=== PATIENT | female | born 1985 | race Caucasian/White ===

== ENCOUNTER 2021-04-10 11:56 | Inpatient (IN) ==
--- NOTE | 2021-04-10 12:13 | Emergency Department Note ---
HPI General Chief complaint: Stroke Symptoms Stated complaint: Increase Weakness and not talking Time Seen by Provider: 04/10/21 12:01 Source: patient Mode of arrival: wheelchair Limitations: no limitations History of Present Illness HPI Narrative: Patient is a 35-year-old lady who arrives emergency department by private vehicle accompanied by her complaining of altered mental status. History is provided by the patient's is quite limited by her current mental status. The patient went to bed last night in her usual state of health and awoke this morning and her noticed she was quite confused. She was unable to carry a conversation with him although she was able to follow commands. He also noted that she had a very unsteady gait which is quite unusual for her. He was concerned about her symptoms and brought her to the emergency department for further evaluation. The patient did have a prior stroke resulting in left upper extremity weakness but had recovered her neurologic function. Related Data Home Medications Medication Instructions Recorded Confirmed albuterol sulfate 90 mcg/actuation 1 puff INH Q4HP PRN 08/25/14 10/20/14 aerosol inhaler (Ventolin HFA) insulin glargine 100 unit/mL 70 unit SQ ONCE 08/25/14 10/20/14 subcutaneous solution (Lantus U-100 Insulin) montelukast 10 mg tablet 10 mg PO DAILY 08/25/14 10/20/14 (Singulair) nateglinide 60 mg tablet (Starlix) 60 mg PO TID 08/25/14 10/20/14 ondansetron 4 mg disintegrating 4 mg PO PRN PRN 08/25/14 10/20/14 tablet sitagliptin 100 mg tablet (Januvia) 100 mg PO DAILY 08/25/14 10/20/14 bupropion HCl 100 mg tablet 150 mg PO ONCE 09/26/15 05/26/19 exenatide microspheres 2 mg/0.65 2 mg SQ DAILY 05/26/19 05/26/19 mL subcutaneous pen injector losartan 100 mg tablet 100 mg PO DAILY 05/26/19 05/26/19 Previous Rx's Medication Instructions Recorded prednisone 10 mg tablet 10 mg PO DAILY #40 tab 04/02/15 azithromycin 250 mg tablet 250 mg PO DAILY #6 tab 03/17/17 fluconazole 150 mg tablet 150 mg PO ONCE #2 tab 03/17/17 methocarbamol 750 mg tablet 750 mg PO TID PRN #20 tab 05/26/19 albuterol sulfate 90 mcg/actuation 2 puff INHALATION Q4H PRN #6.7 g 12/20/20 aerosol inhaler prednisone 20 mg tablet 60 mg PO QDAY #15 tab 12/20/20 fluconazole 150 mg tablet 150 mg PO Q3D #2 tab 04/03/21 Allergies Allergy/AdvReac Type Severity Reaction Status Date / Time guaifenesin [From QUIBRON] Allergy Unknown VOMIT Verified 04/10/21 12:00 lisinopril [LISINOPRIL] Allergy Unknown IRRATABLE Verified 04/10/21 12:00 metformin [METFORMIN] Allergy Unknown NAUSEA Verified 04/10/21 12:00 quinapril [QUINAPRIL] Allergy Unknown DIZZY Verified 04/10/21 12:00 VOMIT, theophylline [From QUIBRON] Allergy Unknown VOMIT Verified 04/10/21 12:00 Review of Systems ROS ROS Narrative: Narrative: Limitations: ROS unobtainable due to patients medical condition [facility] Narrative Patient History Narrative: Narrative: Medical/Surgical/Family History All Active Problems (Updated 04/10/21 @ 14:27 by Andre Sunshine DO) Diabetic ketoacidosis (Acute) Upper respiratory infection (Acute) Atypical pneumonia (Acute) Moyamoya (Acute) Asthma (Acute) Diabetes (Acute) Asthma exacerbation (Acute) Acute bronchitis (Acute) Left shoulder pain (Acute) Weakness of left upper extremity (Acute) Contracture of muscle, left upper arm (Acute) Medical History (Updated 04/10/21 @ 14:27 by Andre Sunshine DO) Asthma exacerbation delivery delivered CVA (cerebral vascular accident) Surgical History H/O tubal ligation Social History Smoking Status: Never smoker Alcohol Intake Frequency: does not drink Substance Use: does not use Exam Narrative Narrative: I reviewed the vital signs. Gen -patient is awake and alert and in no acute distress. Patient appears slightly disheveled. She smells strongly of urine. HEENT -head is atraumatic. There is no conjunctival pallor or scleral icterus. Mucous membranes are moist. CV -S1-S2 regular rate and rhythm. Resp -breathing is nonlabored. Lungs are clear to auscultation bilaterally. There is no cyanosis. Derm -skin is warm and dry. MSK -present extremities are atraumatic. Psych -patient has appropriate affect. Neuro -patient does not produce any intelligible speech. Patient has a very ataxic gait. Muscle strength is 5 out of 5 in all 4 extremities. There is no facial muscular asymmetry. Tongue protrudes in the midline and the palate elevates symmetrically. Patient has difficulty processing more complex commands. Within the limitations of this examination the patient's NIH stroke scale is 6. General Limitations: no limitations Course Vital Signs Vital signs: Vital Signs Temperature 97.7 F 04/10/21 11:57 Pulse Rate 135 H 04/10/21 11:57 Respiratory Rate 22 04/10/21 11:57 Blood Pressure 148/129 04/10/21 11:57 Pulse Oximetry (%) 98 04/10/21 11:57 Temperature 97.7 F 04/10/21 11:57 Pulse Rate 132 H 04/10/21 13:05 Respiratory Rate 21 04/10/21 13:46 Blood Pressure 173/112 04/10/21 13:46 Pulse Oximetry (%) 100 04/10/21 13:05 [facility] MDM Narrative Medical decision making narrative: Patient presents with acute altered mental status. CT reveals some subacute or chronic infarcts but no acute intracranial hemorrhage. Labs are remarkable for a metabolic acidosis elevated anion gap and ketones. She is also hyperglycemic and her CBC appears somewhat hemoconcentrated. On reassessment after receiving IV fluids, the patient is able to produce some fluent speech although she still provides very brief answers to questions. She does note that she has missed doses of her medications recently but cannot quantify how many or which m edications she has missed. I discussed the test results with the patient and her . I considered the possibility of ischemic stroke but given the improvement with IV fluids and the diabetic ketoacidosis that is present I think her symptoms are likely due to metabolic encephalopathy. She is agreeable with the plan for admission. Even if this were an acute ischemic stroke the patient is not a candidate for IV thrombolytics or endovascular therapy due to the timing of the onset of her symptoms. I discussed the patient's history examination and diagnostic findings with Dr. Flores, who agrees with the plan of care and accepts admission. Critical care time I provided 35 minutes of critical care time. This was in addition to any separately billable procedures. The patient was given IV fluids to treat her dehydration and the causative diabetic ketoacidosis. She was given IV insulin to treat her diabetic ketoacidosis. She was rapidly assessed for mental status changes concerning for possible ischemic or hemorrhagic stroke. The patient was closely monitored for response to treatment and stability of vital signs throughout their emergency department stay. Lab Data Lab results reviewed: Yes I reviewed the patient's lab results. Result diagrams: 04/10/21 12:04/10/21 12: Labs: Lab Results 04/10/21 04/10/21 04/10/21 Range/Units 12: 12: 12: WBC 7.2 (4.5-11.0) K/mcL RBC 5.61 H (3.59-5.38) M/mcL Hgb 17.6 H (11.2-15.7) g/dL Hct 52.4 H (34.1-44.9) % MCV 93.4 (80.0-100.0) fL MCH 31.4 (26.0-34.0) pg MCHC 33.6 (31.0-36.0) g/dL RDW 12.2 (11.5-14.5) % Plt Count 255 (140-440) K/mcL MPV 10.2 (7.4-10.4) fL Neut % (Auto) 47.0 (38.0-78.0) % Lymph % (Auto) 43.8 (15.5-49.0) % [place] % (Auto) 9.1 (1.0-12.0) % Eos % (Auto) 0 (0.0-7.0) % Baso % (Auto) 0.1 (0.0-2.0) % Lymph # (Auto) 3.17 (1.50-4.80) K/mcL [place] # (Auto) 0.66 (0.10-0.90) K/mcL Eos # (Auto) 0 (0.00-0.70) K/mcL Baso # (Auto) 0.01 (0.00-0.30) K/mcL Absolute Neutrophils 3.39 (1.80-8.00) K/mcL POC PT 13.5 (11.9-14.5) sec PT 12.2 (11.9-14.5) sec POC INR 1.1 (0.8-1.2) INR 0.9 (0.9-1.1) APTT 21.8 (20.0-37.0) sec VBG Lactic Acid (0.5-2.0) mmol/L Sodium 134 (133-145) mmol/L Potassium 4.4 (3.3-5.1) mmol/L Chloride 97 (96-108) mmol/L Carbon Dioxide 12 L (22-30) mmol/L Anion Gap 25.0 H (8.0-16.0) BUN 20 (6-20) mg/dL Creatinine 1.0 (0.6-1.1) mg/dL POC Creatinine 0.6 (0.6-1.2) mg/dL GFR Calculation 72 Glucose 317 H (70-105) mg/dL Calcium 9.2 (8.6-10.4) mg/dL Total Bilirubin 0.4 (0.1-1.0) mg/dL AST 14 (<32) U/L ALT 12 (<40) U/L Alkaline Phosphatase 65 (39-117) U/L Total Protein 7.9 (5.9-8.4) gm/dL Albumin 3.9 (3.2-5.2) gm/dL Globulin 4.0 H (2.2-3.7) gm/dL Albumin/Globulin Ratio 1.0 (1.0-2.3) Beta-Hydroxybutyrate (<0.27) mmol/L Ethyl Alcohol (<0.010) gm/dL 04/10/21 04/10/21 04/10/21 Range/Units 12:23 12:23 13:34 WBC (4.5-11.0) K/mcL RBC (3.59-5.38) M/mcL Hgb (11.2-15.7) g/dL Hct (34.1-44.9) % MCV (80.0-100.0) fL MCH (26.0-34.0) pg MCHC (31.0-36.0) g/dL RDW (11.5-14.5) % Plt Count (140-440) K/mcL MPV (7.4-10.4) fL Neut % (Auto) (38.0-78.0) % Lymph % (Auto) (15.5-49.0) % [place] % (Auto) (1.0-12.0) % Eos % (Auto) (0.0-7.0) % Baso % (Auto) (0.0-2.0) % Lymph # (Auto) (1.50-4.80) K/mcL [place] # (Auto) (0.10-0.90) K/mcL Eos # (Auto) (0.00-0.70) K/mcL Baso # (Auto) (0.00-0.30) K/mcL Absolute Neutrophils (1.80-8.00) K/mcL POC PT (11.9-14.5) sec PT (11.9-14.5) sec POC INR (0.8-1.2) INR (0.9-1.1) APTT (20.0-37.0) sec VBG Lactic Acid 0.8 (0.5-2.0) mmol/L Sodium (133-145) mmol/L Potassium (3.3-5.1) mmol/L Chloride (96-108) mmol/L Carbon Dioxide (22-30) mmol/L Anion Gap (8.0-16.0) BUN (6-20) mg/dL Creatinine (0.6-1.1) mg/dL POC Creatinine (0.6-1.2) mg/dL GFR Calculation Glucose (70-105) mg/dL Calcium (8.6-10.4) mg/dL Total Bilirubin (0.1-1.0) mg/dL AST (<32) U/L ALT (<40) U/L Alkaline Phosphatase (39-117) U/L Total Protein (5.9-8.4) gm/dL Albumin (3.2-5.2) gm/dL Globulin (2.2-3.7) gm/dL Albumin/Globulin Ratio (1.0-2.3) Beta-Hydroxybutyrate 7.36 H (<0.27) mmol/L Ethyl Alcohol < 0.010 (<0.010) gm/dL ED POC Tests ED POC Tests: MATILDE - SARS Antigen Negative EKG Data EKG #1: EKG attestation: Yes I reviewed and interpreted this EKG. EKG results narrative: . There are prominent P waves. Normal QRS and T wave morphology. No ST segment deviation. Few PVCs. NV and QRS duration. QTC is prolonged at 502. No old EKG immediately available for comparison. EKG was interpreted by me. Discharge Plan Patient/Caregiver Discharge Instructions Pt seen by DOOR CUTTER/PA only: No Clinical Impression: Diabetic ketoacidosis Patient Disposition: Xfer As Inpt ([facility]) Condition: Fair Follow up with: Julianne Leon ARNP [Primary Care Provider] - Prescriptions: No Action sitagliptin [Januvia] 100 MG tablet 100 mg PO DAILY 0RF insulin glargine [Lantus U-100 Insulin] 1 UNIT/0.01 ML solution 70 unit SQ ONCE 0RF albuterol sulfate [Ventolin HFA] 1 PUFF HFA aerosol inhaler 1 puff INH Q4HP PRN (Reason: Shortness Of Breath) 0RF montelukast [Singulair] 10 MG tablet 10 mg PO DAILY 0RF ondansetron 4 MG tablet,disintegrating 4 mg PO PRN PRN (Reason: Nausea) 0RF nateglinide [Starlix] 60 MG tablet 60 mg PO TID 0RF prednisone 10 MG tablet 10 mg PO DAILY Qty: 40 0RF Rx Instructions: 4 tabs x po x 4 days, 3 tab po x 4 day, 2 tabs po x 4 days, 1 tab po x 4 days. bupropion HCl 100 MG tablet 150 mg PO ONCE 0RF azithromycin 250 MG tablet 250 mg PO DAILY Qty: 6 0RF Rx Instructions: 2 today then 1 daily x 4 days fluconazole 150 MG tablet 150 mg PO ONCE Qty: 2 0RF Rx Instructions: 1 today and repeat in 7 days losartan 100 MG tablet 100 mg PO DAILY 0RF exenatide microspheres 2 MG/0.65 ML pen injector 2 mg SQ DAILY 0RF methocarbamol 750 MG tablet 750 mg PO TID PRN (Reason: Muscle Spasm) Qty: 20 0RF prednisone 20 mg tablet 60 mg PO QDAY Qty: 15 0RF albuterol sulfate 90 mcg/actuation HFA aerosol inhaler 2 puff inhalation Q4H PRN (Reason: shortness of breath or wheezing) Qty: 6.7 0RF fluconazole 150 mg tablet 150 mg PO Q3D Qty: 2 0RF Rx Instructions: may repeat second dose 72 hrs after first dose if symptoms persist
[2021-04-10] MEDS ORDERED: 0.9 % SODIUM CHLORIDE 1,000 ML IV SCH (12:15)
[2021-04-10 12:38] LABS: POC Creatinine 0.6 mg/dL (0.6-1.2)
[2021-04-10 12:39] LABS: POC INR 1.1 (0.8-1.2); POC Pro Time 13.5 sec (11.9-14.5)
--- NOTE | 2021-04-10 12:45 | Cat Scan Report ---
CLINICAL INFORMATION: Increased weakness and dysarthria. COMPARISON: 05/26/2019 TECHNIQUE: 2.5 mm helical slices were obtained in the skull base to vertex. Following reconstruction, axial reformatted images were reviewed at bone and parenchymal windows. The exam was performed using radiation dose optimization techniques including, but not limited to, automated exposure control, adjustment of the mA and/or kV according to patient size and use of iterative reconstruction technique. FINDINGS: The ventricles, sulci, fissures, and cisterns are mildly enlarged compatible with mild atrophy. No extra-axial fluid collections identified. Moderate remote cortical-based infarct in the parafalcine right frontal lobe near vertex is again seen. A small cortical-based infarct in the mid the right frontal lobe with chronic features was not seen on the previous exam. A small chronic infarct in the deep left frontal periventricular white matter was also not seen on the previous exam.There is no evidence of hemorrhage, mass effect, or edema. Bone windows show no osseous abnormality. IMPRESSION: 1. No cerebral edema, hemorrhage or other acute finding. 2. Chronic bifrontal infarcts. Consider: CT carotid arteriogram and CT cerebral arteriogram. Interpreted and Authenticated by: Lenny Parks 04/10/21
[2021-04-10 13:12] LABS: Basophils # (Auto) 0.01 K/mcL (0.00-0.30); Basophils % (Auto) 0.1 % (0.0-2.0); Eosinophils # (Auto) 0 K/mcL (0.00-0.70); Eosinophils % (Auto) 0 % (0.0-7.0); Hematocrit 52.4 % (34.1-44.9); Hemoglobin 17.6 g/dL (11.2-15.7); Lymphocytes # (Auto) 3.17 K/mcL (1.50-4.80); Lymphocytes % (Auto) 43.8 % (15.5-49.0); Mean Cell Volume 93.4 fL (80.0-100.0); Mean Corpuscular HGB Conc 33.6 g/dL (31.0-36.0); Mean Platelet Volume 10.2 fL (7.4-10.4); Monocytes # (Auto) 0.66 K/mcL (0.10-0.90); Monocytes % (Auto) 9.1 % (1.0-12.0); Platelet Count 255 K/mcL (140-440); RBC 5.61 M/mcL (3.59-5.38); Red Cell Distribution Width 12.2 % (11.5-14.5); WBC 7.2 K/mcL (4.5-11.0)
[2021-04-10 13:31] LABS: INR 0.9 (0.9-1.1); Partial Thromboplastin Time 21.8 sec (20.0-37.0); Prothrombin Time 12.2 sec (11.9-14.5)
[2021-04-10 13:33] LABS: Alcohol, Blood < 10.0 mg/dL; Alcohol,Blood < 0.010 gm/dL (<0.010)
[2021-04-10 13:44] LABS: ALT/SGPT 12 U/L (<40); AST/SGOT 14 U/L (<32); Albumin 3.9 gm/dL (3.2-5.2); Alkaline Phosphatase 65 U/L (39-117); Bilirubin,Total 0.4 mg/dL (0.1-1.0); Blood Urea Nitrogen 20 mg/dL (6-20); Calcium 9.2 mg/dL (8.6-10.4); Carbon Dioxide 12 mmol/L (22-30); Chloride 97 mmol/L (96-108); Glomerular Filtration Rate 72; Glucose 317 mg/dL (70-105)
[2021-04-10] MEDS ORDERED: LACTATED RINGERS 1,000 ML IV ONE (13:50)
[2021-04-10] MEDS ORDERED: INSULIN REGULAR, HUMAN 50 UNIT in 0.9 % SODIUM CHLORIDE 99.5 ML IV SCH (14:00)
[2021-04-10] MEDS ORDERED: POTASSIUM CHLORIDE 20 MEQ in 0.45 % SODIUM CHLORIDE 1,000 ML IV SCH ×2 (15:00→18:00)
--- NOTE | 2021-04-10 15:01 | Internal Med History&Physical ---
HPI History of Present Illness Patient information: Note initiated : 04/10/21 at 2:57 pm Service Date, if different from initiated Date: [] Patient: Cece Dumont a 35 y/o F admitted on for Increase Weakness and not talking. Chief Complaint: [altered mental status; nonverbal] Chief complaint: altered mental status; nonverbal History of present illness: Ms. Bry Tai is a 35 year old F history of moyamoya with prior stroke 4 years ago, type 2 diabetes mellitus insulin dependent, asthma, presenting with 1 day history of acute onset altered mental status and nonverbal status. History is limited by clinical situations. It is mostly obtained from at the bedside. She was being seen in our ED last week with the diagnosis of asthma exacerbations with acute bronchitis. She was being discharged home with antibiotics as well as prednisone. She has been taking the prednisone. She also was reported to skip some doses of insulin. This morning at 3 AM she was noted by her to have altered mental status and nonverbal. The situation persist later this morning so she was being sent to our ED for further evaluations. Now in the ED patient is able to make some noise but she is still largely nonverbal. Vital signs significant for tachycardia. Labs significant for serum glucose elevated at 317, positive beta hydroxybutyrate, serum bicarb of 12, and elevated anion gap of 25, although supporting the diagnosis of diabetic ketoacidosis. She also have a CT of the head without contrast did not show any acute intra cranial pathologies. Review of Systems ROS unobtainable: due to mental status PFSH PFSH All Active Problems (Updated 04/10/21 @ 14:27 by Andre Sunshine DO) Diabetic ketoacidosis (Acute) Upper respiratory infection (Acute) Atypical pneumonia (Acute) Moy[place] (Acute) Asthma (Acute) Diabetes (Acute) Asthma exacerbation (Acute) Acute bronchitis (Acute) Left shoulder pain (Acute) Weakness of left upper extremity (Acute) Contracture of muscle, left upper arm (Acute) Medical History (Updated 04/10/21 @ 14:27 by Andre Sunshine DO) Asthma exacerbation delivery delivered CVA (cerebral vascular accident) Surgical History H/O tubal ligation Social History alcohol intake frequency: does not drink substance use type: does not use MEDS/ALLERGIES Home Medications and Allergies Home Medications Medication Instructions Recorded Confirmed Type albuterol sulfate 90 mcg/actuation 1 puff INH Q4HP PRN 08/25/14 10/20/14 History aerosol inhaler (Ventolin HFA) insulin glargine 100 unit/mL 70 unit SQ ONCE 08/25/14 10/20/14 History subcutaneous solution (Lantus U-100 Insulin) montelukast 10 mg tablet 10 mg PO DAILY 08/25/14 10/20/14 History (Singulair) nateglinide 60 mg tablet (Starlix) 60 mg PO TID 08/25/14 10/20/14 History ondansetron 4 mg disintegrating 4 mg PO PRN PRN 08/25/14 10/20/14 History tablet sitagliptin 100 mg tablet (Januvia) 100 mg PO DAILY 08/25/14 10/20/14 History prednisone 10 mg tablet 10 mg PO DAILY #40 tab 04/02/15 Rx bupropion HCl 100 mg tablet 150 mg PO ONCE 09/26/15 05/26/19 History azithromycin 250 mg tablet 250 mg PO DAILY #6 tab 03/17/17 Rx fluconazole 150 mg tablet 150 mg PO ONCE #2 tab 03/17/17 Rx exenatide microspheres 2 mg/0.65 2 mg SQ DAILY 05/26/19 05/26/19 History mL subcutaneous pen injector losartan 100 mg tablet 100 mg PO DAILY 05/26/19 05/26/19 History methocarbamol 750 mg tablet 750 mg PO TID PRN #20 tab 05/26/19 Rx albuterol sulfate 90 mcg/actuation 2 puff INHALATION Q4H PRN #6.7 g 12/20/20 Rx aerosol inhaler prednisone 20 mg tablet 60 mg PO QDAY #15 tab 12/20/20 Rx fluconazole 150 mg tablet 150 mg PO Q3D #2 tab 04/03/21 Rx Allergies Allergy/AdvReac Type Severity Reaction Status Date / Time guaifenesin [From QUIBRON] Allergy Unknown VOMIT Verified 04/10/21 12:00 lisinopril [LISINOPRIL] Allergy Unknown IRRATABLE Verified 04/10/21 12:00 metformin [METFORMIN] Allergy Unknown NAUSEA Verified 04/10/21 12:00 quinapril [QUINAPRIL] Allergy Unknown DIZZY Verified 04/10/21 12:00 VOMIT, theophylline [From QUIBRON] Allergy Unknown VOMIT Verified 04/10/21 12:00 EXAM Constitutional Vitals: Temp Pulse Resp BP Pulse Ox 36.5 C 132 H 21 156/127 100 04/10/21 11:57 04/10/21 13:05 04/10/21 14:31 04/10/21 14:31 04/10/21 13:05 General appearance: cooperative, disheveled, morbidly obese and no acute distress Head Head exam: Present atraumatic and normocephalic Eye Eye exam: Present EOMI and PERRL ENT ENT exam: Present mucous membranes moist, normal exam and normal external ear exam Neck Neck exam: Present normal inspection; Absent lymphadenopathy, tenderness or thyromegaly Respiratory Respiratory exam: Present decreased breath sounds; Absent accessory muscle use, respiratory distress or wheezes Cardiovascular Cardiovascular exam: Present tachycardia; Absent JVD GI/Abdominal GI/Abdominal exam: Present normal bowel sounds and soft; Absent organomegaly or tenderness Extremities Exam Extremities exam: Present full ROM, normal capillary refill and normal inspection; Absent tenderness Neurological Exam Neurological exam: Present alert and CN II-XII intact; Absent motor sensory deficit or oriented X3 Additional comments: unable to assess orientation due to nonverbal status Psychiatric Psychiatric exam: Absent anxious, depressed, normal affect or normal mood Additional comments: unable to assess due to nonverbal status Skin Skin exam: Present dry and intact DATA Data Completed and Pending Labs: Labs from last 24 hours 04/10/21 04/10/21 04/10/21 14:00 13:34 12:23 WBC RBC Hgb Hct MCV MCH MCHC RDW Plt Count MPV Neut % (Auto) Lymph % (Auto) [place] % (Auto) Eos % (Auto) Baso % (Auto) Lymph # (Auto) [place] # (Auto) Eos # (Auto) Baso # (Auto) Absolute Neutrophils POC PT PT POC INR INR APTT VBG Lactic Acid 0.8 Sodium Potassium Chloride Carbon Dioxide Anion Gap BUN Creatinine POC Creatinine GFR Calculation Glucose Calcium Total Bilirubin AST ALT Alkaline Phosphatase Total Protein Albumin Globulin Albumin/Globulin Ratio Beta-Hydroxybutyrate 7.36 H Urine Color Pending Urine Appearance Pending Urine pH Pending Ur Specific [place] Pending Urine Protein Pending Urine Glucose (UA) Pending Urine Ketones Pending Urine Occult Blood Pending Urine Nitrate Pending Urine Bilirubin Pending Urine Urobilinogen Pending Ur Leukocyte Esterase Pending Ethyl Alcohol 04/10/21 04/10/21 04/10/21 12:23 12:23 12:23 WBC RBC Hgb Hct MCV MCH MCHC RDW Plt Count MPV Neut % (Auto) Lymph % (Auto) [place] % (Auto) Eos % (Auto) Baso % (Auto) Lymph # (Auto) [place] # (Auto) Eos # (Auto) Baso # (Auto) Absolute Neutrophils POC PT 13.5 PT 12.2 POC INR 1.1 INR 0.9 APTT 21.8 VBG Lactic Acid Sodium 134 Potassium 4.4 Chloride 97 Carbon Dioxide 12 L Anion Gap 25.0 H BUN 20 Creatinine 1.0 POC Creatinine 0.6 GFR Calculation 72 Glucose 317 H Calcium 9.2 Total Bilirubin 0.4 AST 14 ALT 12 Alkaline Phosphatase 65 Total Protein 7.9 Albumin 3.9 Globulin 4.0 H Albumin/Globulin Ratio 1.0 Beta-Hydroxybutyrate Urine Color Urine Appearance Urine pH Ur Specific [place] Urine Protein Urine Glucose (UA) Urine Ketones Urine Occult Blood Urine Nitrate Urine Bilirubin Urine Urobilinogen Ur Leukocyte Esterase Ethyl Alcohol < 0.010 04/10/21 12:23 WBC 7.2 RBC 5.61 H Hgb 17.6 H Hct 52.4 H MCV 93.4 MCH 31.4 MCHC 33.6 RDW 12.2 Plt Count 255 MPV 10.2 Neut % (Auto) 47.0 Lymph % (Auto) 43.8 [place] % (Auto) 9.1 Eos % (Auto) 0 Baso % (Auto) 0.1 Lymph # (Auto) 3.17 [place] # (Auto) 0.66 Eos # (Auto) 0 Baso # (Auto) 0.01 Absolute Neutrophils 3.39 POC PT PT POC INR INR APTT VBG Lactic Acid Sodium Potassium Chloride Carbon Dioxide Anion Gap BUN Creatinine POC Creatinine GFR Calculation Glucose Calcium Total Bilirubin AST ALT Alkaline Phosphatase Total Protein Albumin Globulin Albumin/Globulin Ratio Beta-Hydroxybutyrate Urine Color Urine Appearance Urine pH Ur Specific [place] Urine Protein Urine Glucose (UA) Urine Ketones Urine Occult Blood Urine Nitrate Urine Bilirubin Urine Urobilinogen Ur Leukocyte Esterase Ethyl Alcohol A/P Assessment and plan (1) Diabetic ketoacidosis: Status: Acute (2) Asthma: Status: Acute (3) M[place]am[place]: Status: Acute Narrative A/P Narrative: Assessment and Plans: 1. DKA type II: Inpatient ICU with telemetry NPO s/p IV fluid boluses given in the ED, to be followed by the following: a. 1/2 NS w/ KCl 20mEq @250cc/hr when anion gap is elevated (>14) and blood glucose is >=200 b. D5 1/2 NS w/ KCl 20mEq @250cc/hr when anion gap is elevated (>14) and blood glucose is <200 Insulin drip as per DKA protocol Accu Chek q1hr BMp q6hr ABG/VBG Hypoglycemia protocol Hold oral hypoglycemic agents patient educator 2. h/o asthma: DuoNEB NEB PRN wheezing Singulair 3. h/o M[place]: Continue Losartan for blood pressure control Will discuss with PCP regarding starting aspirin for stroke ppx GI ppx: not currently indicated DVT ppx: Lovenox Code status: Full Prognosis: guarded Disposition: Inpatient ICU with telemetry Critical Care Time: 1hr Time Spent With Patient Time: Total time spent is greater than 50% in coordination of care (as documented) at patient's floor/unit and/or counseling patient: Total time spent with greater than 50% in coordination of care (as documented) at patient's floor/unit and/or counseling patient:: Greater than 35 minutes
[2021-04-10 15:09] LABS: Appearance,Urine Clear (Clear); Bilirubin,Urine Small mg/dL (Negative); Color,Urine Yellow; Culture Indicated,Urine No; Ketones,Urine >=160 mg/dL mg/dL (Negative); Leukocyte Esterase,Urine Negative /uL (Negative); Mucus,Urine FEW /hpf; Nitrate,Urine Negative (Negative); PH,Urine 5.5 (5.0-9.0); Protein,Urine >=300 mg/dL mg/dL (Negative); Specific Gravity,Urine >= 1.030 (1.000-1.035); Urine Blood Moderate ery/mcL (Negative); Urine Hyaline Cast 6 /lph (0-2); Urine RBC 1 /hpf (0-3); Urine Squamous Epithelial Cell 1 /hpf (0-4); Urine WBC 1 /hpf (0-4); Urobilinogen,Urine Normal
--- NOTE | 2021-04-10 16:14 | Magnetic Resonance Report ---
CLINICAL INFORMATION: Weakness and dysarthria. Possible acute CVA COMPARISON: Head CT without contrast 04/10/2021 TECHNIQUE:Sagittal T1 FLAIR, T2 FLAIR propeller, axial diffusion, ADC or acquired. FINDINGS: The ventricles, sulci, fissures and cisterns are normal in size configuration-no extra-axial fluid collections or mass are appreciated. A 2 cm region of restricted diffusion, in the parafalcine left frontal lobe near vertex, is compatible with acute nonhemorrhagic infarct. There are two acute nonhemorrhagic lacunar infarcts more anteriorly in the deep left frontal white matter. A 5 mm acute nonhemorrhagic lacunar infarct in the genu of the corpus callosum. 2 cm remote cortical-based infarct in the parafalcine right frontal lobe near vertex and 1.5 cm cortical-based infarct in the mid right frontal lobe are not well visualized.. The signal void in intracerebral arteries, extra-axial cranial nerves, pituitary, orbits and paranasal sinuses are all normal. IMPRESSION: 1. 2 cm region of restricted diffusion in the parafalcine left frontal lobe near vertex is compatible with acute nonhemorrhagic infarct. Two 4 mm acute nonhemorrhagic lacunar infarcts are seen more anteriorly in the left frontal lobe. There is a 5 mm acute infarct in genu of the corpus callosum. 2 cm remote infarct in the parafalcine right frontal lobe and a 1.5 cm cortical-based infarct in the mid right frontal lobe are not well-visualized on this limited exam. All infarcts are in the anterior circulation predominantly supplied by the anterior cerebral arteries. Suggest CT carotid and CT cerebral angiogram to evaluate for occlusion or stenosis. Interpreted and Authenticated by: Lenny Parks 04/10/21
[2021-04-10] MEDS ORDERED: ONDANSETRON 4 MG/2 ML VIAL IV PRN (16:19)
[2021-04-10] MEDS ORDERED: DEXTROSE 50% 50 ML SYRINGE IV ONE (16:19)
[2021-04-10] MEDS ORDERED: METHOCARBAMOL 750 MG TABLET PO PRN (16:19)
[2021-04-10] MEDS ORDERED: PROMETHAZINE 25 MG/ML VIAL IV PRN (16:19)
[2021-04-10] MEDS ORDERED: ACETAMINOPHEN 325 MG TABLET PO PRN (16:19)
[2021-04-10] MEDS ORDERED: SENNOSIDES 1 TABLET PO PRN (16:26)
[2021-04-10] MEDS ORDERED: POTASSIUM CHLORIDE 20 MEQ in DEXTROSE 5% IN WATER 250 ML IV ONE (17:00)
[2021-04-10] MEDS ORDERED: INSULIN REGULAR, HUMAN 1 UNIT/0.01 ML UNIT IV ONE (17:25)
[2021-04-10] MEDS: POTASSIUM CHLORIDE 20 MEQ in 0.45 % SODIUM CHLORIDE 1,000 ML IV SCH ×2 (17:26→22:03)
[2021-04-10 18:07] LABS: Estimated Average Glucose(eAG) 275 mg/dL; Hemoglobin A1C 11.2 % Hgb (4.0-6.0)
[2021-04-10] MEDS ORDERED: CLOPIDOGREL 300 MG TABLET PO ONE (19:11)
[2021-04-10] MEDS ORDERED: hydrALAZINE 20 MG/ML VIAL IV PRN (19:13)
[2021-04-10 19:44] LABS: HDL Cholesterol 23 mg/dL (>40); LDL Cholesterol,Calculated 118 mg/dL (<100); Non-HDL Cholesterol 186 mg/dL (<130); Triglycerides 342 mg/dL (<150)
[2021-04-10] MEDS: ATORVASTATIN 40 MG TABLET PO SCH (20:39)
[2021-04-10] MEDS: DEXTROSE 5%-1/2NS W/20MEQ KCL 1,000 ML IV SCH ×3 (21:19→23:01)
[2021-04-10] MEDS: DOCUSATE SODIUM 100 MG CAPSULE PO SCH (21:20)
[2021-04-10] MEDS: 0.9 % SODIUM CHLORIDE 10 ML SYRINGE IV SCH (22:04)
[2021-04-11] MEDS: INSULIN REGULAR, HUMAN 50 UNIT in 0.9 % SODIUM CHLORIDE 99.5 ML IV SCH ×2 (00:35→07:22)
[2021-04-11] MEDS: DEXTROSE 5%-1/2NS W/20MEQ KCL 1,000 ML IV SCH ×3 (02:53→10:54)
[2021-04-11] MEDS: POTASSIUM CHLORIDE 20 MEQ in 0.45 % SODIUM CHLORIDE 1,000 ML IV SCH ×4 (03:15→13:27)
--- NOTE | 2021-04-11 05:03 | Cat Scan Report ---
CLINICAL INFORMATION: Acute left frontal infarct. Evaluate cerebral vasculature COMPARISON: None. TECHNIQUE: 80 cc of Isovue-370 were injected intravenously , and using SmartPrep to maximize cerebral arterial opacification, 0.625 mm helical slices were obtained from the skull base through the cerebral vertex. Following reconstruction , sagittal, coronal and axial reformatted images were processed and reviewed at multiple windows and levels. 3D volume rendered and MIP images were acquired at a independent workstation. The exam was performed using radiation dose optimization techniques including, but not limited to, automated exposure control, adjustment of the mA and/or kV according to patient size and use of iterative reconstruction technique. FINDINGS: The petrous segments of both intracranial internal carotid artery are quite diminutive-particularly the left side. Complete occlusion of the cavernous and supraclinoid segments of both intracranial internal carotid arteries with extension into the A1 and M1 segments of the anterior and middle cerebral arteries bilaterally. A "puff of smoke "appearance is seen in the medial temporal lobes, adjacent to the supraclinoid occlusion, compatible with tiny collaterals. Distal to the A1 and M1 segments, the anterior and middle cerebral arteries are patent due to a posterior communicating artery perfusing via the posterior cerebral arteries. There is a short segment occlusion of the proximal A2 segment of the right anterior cerebral artery. Marked attenuation of the cerebral vasculature is seen in the anterior and middle cerebral artery distributions-particularly the left anterior cerebral distribution. The vertebral, basilar and posterior cerebral arteries are widely patent and normal in contour and caliber. Superficial and deep cerebral veins are widely patent. IMPRESSION: 1. 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 The occlusion extends into the A1 and M1 origins. The A2 and M2 segments of the anterior and middle cerebral arteries are perfused via patent posterior communicating artery from the posterior cerebral artery. There also likely pial collaterals. A "puff of smoke "appearance in the medial temporal lobes are compatible tiny collaterals. Findings are classic for Moyamoya disease. This is a poorly understood fibrocellular proliferation and intimal thickening of the intracranial internal carotid arteries resulting in vascular stenosis and occlusion. Classically, it involves the distal intracranial ICA and zuni of [place]. 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 They are classically treated neurosurgically with external carotid or superficial temporal artery to middle cerebral artery bypass. However, prior to surgery, please consider consultation with a interventional neuroradiologist to determine the feasibility of stenting. Interpreted and Authenticated by: Lenny Parks 04/11/21
--- NOTE | 2021-04-11 05:09 | Cat Scan Report ---
CLINICAL INFORMATION: Acute frontal lobe infarct COMPARISON: None. TECHNIQUE: 80 cc of Isovue-300 were injected intravenously followed by 40 cc of normal saline flush. Using SmartPrep, 0.625 helical slices were obtained from the thoracic aortic arch through the [place] of [place]. Following reconstruction, 2.5 mm sagittal, coronal and axial reformatted images were processed. MIPS , 3-D volume rendering and CPR images were also constructed. The exam was performed using radiation dose optimization techniques including, but not limited to, automated exposure control, adjustment of the mA and/or kV according to patient size and use of iterative reconstruction technique. FINDINGS: The thoracic aortic arch is normal diameter with minimal intimal thickening and conventional aortic branching. The brachiocephalic, both subclavian and both vertebral arteries are widely patent without significant abnormality. Both cervical internal carotid arteries are patent, but diminutive throughout their course. No soft tissue abnormality. IMPRESSION: Small-caliber cervical internal carotid arteries related to distal intracranial occlusion. Please see CT cerebral angiogram report. The patient has moyamoya disease with intracranial manifestations Probable mild enlargement of the central pulmonary artery which is incompletely imaged. This suggests the possibility of pulmonary hypertension. Interpreted and Authenticated by: Lenny Parks 04/11/21
[2021-04-11] MEDS: 0.9 % SODIUM CHLORIDE 10 ML SYRINGE IV SCH ×3 (06:00→21:51)
[2021-04-11 07:08] LABS: Basophils # (Auto) 0.01 K/mcL (0.00-0.30); Basophils % (Auto) 0.2 % (0.0-2.0); Eosinophils # (Auto) 0.02 K/mcL (0.00-0.70); Eosinophils % (Auto) 0.3 % (0.0-7.0); Hematocrit 44.4 % (34.1-44.9); Hemoglobin 14.5 g/dL (11.2-15.7); Lymphocytes # (Auto) 2.85 K/mcL (1.50-4.80); Lymphocytes % (Auto) 44.4 % (15.5-49.0); Mean Cell Volume 95.5 fL (80.0-100.0); Mean Corpuscular HGB Conc 32.7 g/dL (31.0-36.0); Monocytes # (Auto) 0.79 K/mcL (0.10-0.90); Monocytes % (Auto) 12.3 % (1.0-12.0); Neutrophils % (Auto) 42.8 % (38.0-78.0); Platelet Count 218 K/mcL (140-440); RBC 4.65 M/mcL (3.59-5.38); Red Cell Distribution Width 12.6 % (11.5-14.5); WBC 6.4 K/mcL (4.5-11.0)
[2021-04-11 07:41] LABS: Carbon Dioxide 16 mmol/L (22-30); Chloride 107 mmol/L (96-108)
[2021-04-11 07:46] LABS: ALT/SGPT 7 U/L (<40); AST/SGOT 8 U/L (<32); Albumin 2.9 gm/dL (3.2-5.2); Albumin/Globulin Ratio 0.9 (1.0-2.3); Alkaline Phosphatase 45 U/L (39-117); Bilirubin,Total 0.3 mg/dL (0.1-1.0); Blood Urea Nitrogen 14 mg/dL (6-20); Carbon Dioxide 16 mmol/L (22-30); Chloride 106 mmol/L (96-108); Globulin 3.1 gm/dL (2.2-3.7); Glomerular Filtration Rate 95; Glucose 180 mg/dL (70-105); Phosphorous 1.3 mg/dL (2.5-4.5)
[2021-04-11] MEDS: DOCUSATE SODIUM 100 MG CAPSULE PO SCH ×2 (09:08→20:00)
[2021-04-11] MEDS: CLOPIDOGREL 75 MG TABLET PO SCH (09:08)
[2021-04-11] MEDS: buPROPion 150 MG TAB.XL.24H PO SCH (09:08)
[2021-04-11] MEDS: ASPIRIN 81 MG TAB.CHEW CHEWED SCH (09:08)
[2021-04-11] MEDS: LOSARTAN 50 MG TABLET PO SCH (09:08)
[2021-04-11] MEDS: ENOXAPARIN 40 MG/0.4 ML SYRINGE SQ SCH (09:08)
[2021-04-11] MEDS: MONTELUKAST 10 MG TABLET PO SCH (09:08)
--- NOTE | 2021-04-11 11:17 | Internal Med Progress Note ---
SUBJECTIVE Subjective Patient information: Note initiated : 04/11/21 at 11:06 am Service Date, if different from initiated Date: [] Patient: Cece Dumont a 35 y/o F admitted on 04/10/21 for Increase Weakness and not talking. Chief Complaint: [] Interval history: Ms. Bry Tai is a 35 year old F history of moyamoya with prior stroke 4 years ago, type 2 diabetes mellitus insulin dependent, asthma, presenting with 1 day history of acute onset altered mental status and nonverbal status. History is limited by clinical situations. It is mostly obtained from at the bedside. She was being seen in our ED last week with the diagnosis of asthma exacerbations with acute bronchitis. She was being discharged home with antibiotics as well as prednisone. She has been taking the prednisone. She also was reported to skip some doses of insulin. This morning at 3 AM she was noted by her to have altered mental status and nonverbal. The situation persist later this morning so she was being sent to our ED for further ev aluations. Now in the ED patient is able to make some noise but she is still largely nonverbal. Vital signs significant for tachycardia. Labs significant for serum glucose elevated at 317, positive beta hydroxybutyrate, serum bicarb of 12, and elevated anion gap of 25, although supporting the diagnosis of diabetic ketoacidosis. She also have a CT of the head without contrast did not show any acute intra cranial pathologies. 04/11: MRI brain w/o: IMPRESSION: 1. 2 cm region of restricted diffusion in the parafalcine left frontal lobe near vertex is compatible with acute nonhemorrhagic infarct. Two 4 mm acute nonhemorrhagic lacunar infarcts are seen more anteriorly in the left frontal lobe. There is a 5 mm acute infarct in genu of the corpus callosum. 2 cm remote infarct in the parafalcine right frontal lobe and a 1.5 cm cortical-based infarct in the mid right frontal lobe are not well-visualized on this limited exam. All infarcts are in the anterior circulation predominantly supplied by the anterior cerebral arteries. Suggest CT carotid and CT cerebral angiogram to evaluate for occlusion or stenosis. Head/neck CTA: IMPRESSION: 1. 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 The occlusion extends into the A1 and M1 origins. The A2 and M2 segments of the anterior and middle cerebral arteries are perfused via patent posterior communicating artery from the posterior cerebral artery. There also likely pial collaterals. A "puff of smoke "appearance in the medial temporal lobes are compatible tiny collaterals. Findings are classic for Moyamoya disease. This is a poorly understood fibrocellular proliferation and intimal thickening of the intracranial internal carotid arteries resulting in vascular stenosis and occlusion. Classically, it involves the distal intracranial ICA and [place] of [place]. Epidemiologically, there is a bimodal age distribution at presentation including an gambling monitor of four years and a middle-aged distribution of 30-40 years as in this case. They are classically treated neurosurgically with external carotid or superficial temporal artery to middle cerebral artery bypass. However, prior to surgery, please consider consultation with a interventional Stil on insulin drip for the management of DKA, pending next BMP check to see if can switch to SQ insulin. Will look into transferring to a tertiary center with neurosurgery/vascular surgery for further management. Constitutional Vitals: Vital Signs Temp Pulse Resp BP Pulse Ox 37.1 C 109 H 22 133/89 97 04/11/21 11:00 04/11/21 11:00 04/11/21 11:00 04/11/21 10:01 04/11/21 11:00 Period Temp Pulse Resp BP Sys/Mcnair Pulse Ox Last 24 Hr 36.2 C-37.6 C 97-141 12-26 133-186/85-153 90-100 Intake and Output 04/10/21 04/11/21 04/11/21 21:59 05:59 13:59 Intake Total 621 2369 2595 Output Total 1056 535 301 Balance -435 1834 2294 Weight 109.429 kg 112.548 kg Patient Weight 04/12/21 05:59 Weight 112.548 kg Intake & Output: Intake & Output 04/10/21 04/11/21 04/11/21 21:59 05:59 13:59 Intake Total 621 2369 2595 Output Total 1056 535 301 Balance -435 1834 2294 Weight 109.429 kg 112.548 kg Intake: IV 621 2369 2115 Sodium Chloride 0.9% 1,000 ml @ 600 Wide Open IV .Q0M [facility] Rx#: [id number] Dextrose 5%-1/2Ns W/20Meq KCl 1 967 2000 ,000 ml @ 250 mls/hr IV .Q4H [facility] Rx#:[id number] HumuLIN R 50 UNIT In Sodium 21 132 115 Chloride 0.9% 99.5 ml @ Per Protocol IV DUR [facility] Rx#: [id number] Potassium Chloride 20 Meq In 1010 Sodium Chloride 0.45% 1,000 ml @ 250 mls/hr IV Q4H [facility] Rx#: [id number] Potassium Chloride 20 Meq In 260 Dextrose 5% in Water 250 ml @ 130 mls/hr IV ONCE ONE Rx#: [id number] Oral 480 Output: Urine Catheter Amount 1056 535 301 Other: Urine Appearance Clear Cloudy Cloudy Sediment Uretheral (Sanz) Clear Urine Color Bright Yellow Bright Yellow Bright Yellow Uretheral (Sanz) Dark Yellow Urine Odor Strong General appearance: cooperative and no acute distress Head Head exam: Present atraumatic and normal inspection Eye Eye exam: Present normal appearance ENT ENT exam: Present mucous membranes moist, normal exam and normal external ear exam Neck Neck exam: Present normal inspection Respiratory Respiratory exam: Present normal respiratory exam Cardiovascular Cardiovascular exam: Present normal rate and rhythm GI/Abdominal GI/Abdominal exam: Present normal bowel sounds Back Exam Back exam: Present normal inspection Neurological Exam Neurological exam: Present alert; Absent motor sensory deficit or oriented X3 Additional comments: 4/5 motor strength right upper and left lower extremities Orientation cannot be assessed due to clinical situations Skin Skin exam: Present intact and warm OBJ DATA Labs CBC & Chem 7: 04/11/21 05:26 04/11/21 05:26 Labs: Abnormal Lab Results 04/11/21 04/11/21 04/11/21 05:26 05:26 05:26 RBC Hgb Hct [place] % (Auto) 12.3 H Carbon Dioxide 16 L 16 L Anion Gap Glucose 180 H Hemoglobin A1c Calcium 8.0 L Phosphorus 1.3 L Albumin 2.9 L Globulin Albumin/Globulin Ratio 0.9 L Triglycerides Cholesterol LDL Cholesterol, Calc Non-HDL Cholesterol HDL Cholesterol Beta-Hydroxybutyrate Urine Protein Urine Glucose (UA) Urine Ketones Urine Occult Blood Urine Bilirubin Hyaline Casts Urine Mucus 04/10/21 04/10/21 04/10/21 19:10 17:57 15:24 RBC Hgb Hct [place] % (Auto) Carbon Dioxide 9 L* Anion Gap 25.0 H Glucose Hemoglobin A1c 11.2 H Calcium Phosphorus Albumin Globulin Albumin/Globulin Ratio Triglycerides 342 H Cholesterol 209 H LDL Cholesterol, Calc 118 H Non-HDL Cholesterol 186 H HDL Cholesterol 23 L Beta-Hydroxybutyrate Urine Protein Urine Glucose (UA) Urine Ketones Urine Occult Blood Urine Bilirubin Hyaline Casts Urine Mucus 04/10/21 04/10/21 04/10/21 14:00 12:23 12:23 RBC Hgb Hct [place] % (Auto) Carbon Dioxide 12 L Anion Gap 25.0 H Glucose 317 H Hemoglobin A1c Calcium Phosphorus Albumin Globulin 4.0 H Albumin/Globulin Ratio Triglycerides Cholesterol LDL Cholesterol, Calc Non-HDL Cholesterol HDL Cholesterol Beta-Hydroxybutyrate 7.36 H Urine Protein >=300 mg/dl A Urine Glucose (UA) 500 mg/dl A Urine Ketones >=160 mg/dl A Urine Occult Blood Moderate A Urine Bilirubin Small A Hyaline Casts 6 H Urine Mucus Few A 04/10/21 12:23 RBC 5.61 H Hgb 17.6 H Hct 52.4 H [place] % (Auto) Carbon Dioxide Anion Gap Glucose Hemoglobin A1c Calcium Phosphorus Albumin Globulin Albumin/Globulin Ratio Triglycerides Cholesterol LDL Cholesterol, Calc Non-HDL Cholesterol HDL Cholesterol Beta-Hydroxybutyrate Urine Protein Urine Glucose (UA) Urine Ketones Urine Occult Blood Urine Bilirubin Hyaline Casts Urine Mucus Meds: Medications Acetaminophen (Acetaminophen 325 Mg Tablet) 650 mg PO Q4-6HP PRN; Protocol PRN Reason: Per Pain Protocol/Fever > 101 Albuterol/Ipratropium (Ipratropium/Albuterol 3 Ml Ampul.Neb) 3 ml NEB Q4HRT PRN PRN Reason: Wheezing Aspirin (Aspirin 81 Mg Tab.Chew) 81 mg CHEWED DAILY [facility] Last Admin: 04/11/21 09:08 Dose: 81 mg Documented by: Atorvastatin Calcium (Atorvastatin 40 Mg Tablet) 40 mg PO HS [facility] Last Admin: 04/10/21 20:39 Dose: 40 mg Documented by: Bupropion HCl (Bupropion 150 Mg Tab.Xl.24h) 300 mg PO DAILY [facility] Last Admin: 04/11/21 09:08 Dose: 300 mg Documented by: Clopidogrel Bisulfate (Clopidogrel 75 Mg Tablet) 75 mg PO DAILY [facility] Last Admin: 04/11/21 09:08 Dose: 75 mg Documented by: Diagnostic Test (Pha) (Accu-Chek 1 Each Strip) 1 each FS Q1 [facility] Last Admin: 04/11/21 11:01 Dose: 1 each Documented by: Docusate Sodium (Docusate Sodium 100 Mg Capsule) 100 mg PO BID [facility] Last Admin: 04/11/21 09:08 Dose: 100 mg Documented by: Enoxaparin Sodium (Enoxaparin 40 Mg/0.4 Ml Syringe) 40 mg SQ DAILY [facility] Last Admin: 04/11/21 09:08 Dose: 40 mg Documented by: Hydralazine HCl (Hydralazine 20 Mg/Ml Vial) 10 mg IV Q4-6HP PRN PRN Reason: Hypertension Insulin Human Regular 50 unit/ (Sodium Chloride) 100 mls @ 0 mls/hr IV DUR [facility]; Protocol Last Titration: 04/11/21 11:02 Dose: 10 unit/hr, 20 mls/hr Documented by: Potassium Chloride/Dextrose/Sod Cl (Dextrose 5%-1/2ns W/20meq Kcl) 1,000 mls @ 250 mls/hr IV .Q4H [facility] Last Admin: 04/11/21 10:54 Dose: 250 mls/hr Documented by: Potassium Chloride 20 meq/ (Sodium Chloride) 1,010 mls @ 250 mls/hr IV Q4H [facility] Last Admin: 04/11/21 09:30 Dose: Not Given Documented by: Losartan Potassium (Losartan 50 Mg Tablet) 100 mg PO DAILY [facility] Last Admin: 04/11/21 09:08 Dose: 100 mg Documented by: Methocarbamol (Methocarbamol 750 Mg Tablet) 750 mg PO TIDP PRN PRN Reason: Muscle Spasm Montelukast Sodium (Montelukast 10 Mg Tablet) 10 mg PO DAILY [facility] Last Admin: 04/11/21 09:08 Dose: 10 mg Documented by: Ondansetron HCl (Ondansetron 4 Mg/2 Ml Vial) 4 mg IV Q4-6HP PRN; Protocol PRN Reason: Nausea And Vomiting Promethazine HCl (Promethazine 25 Mg/Ml Vial) 25 mg IV Q4-6HP PRN; Protocol PRN Reason: Nausea And Vomiting Senna (Sennosides 1 Tablet) 1 tab PO DAILYP PRN PRN Reason: Constipation Sodium Chloride (0.9 % Sodium Chloride 10 Ml Syringe) 10 ml IV Q8 [facility] Last Admin: 04/11/21 06:00 Dose: 10 ml Documented by: A/P Assessment and plan (1) Diabetic ketoacidosis: Status: Acute (2) Asthma: Status: Acute (3) Moyamoya: Status: Acute (4) Acute ischemic stroke: Status: Acute Narrative A/P Narrative: Assessment and Plans: 1. DKA type II: Inpatient ICU with telemetry NPO s/p IV fluid boluses given in the ED, to be followed by the following: a. 1/2 NS w/ KCl 20mEq @250cc/hr when anion gap is elevated (>14) and blood glucose is >=200 b. 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 h/o asthma: DuoNEB NEB PRN wheezing Singulair 3. h/o Moyamoya: Continue Losartan for blood pressure control Will discuss with PCP regarding starting aspirin for stroke ppx 4. Ischemic stroke: Please see MRI brain w/o and CTA head and neck report for full details Physical therapy Occupational therapy Speech therapy Dual antiplatelet therapy Aspirin and Plavix Statin Will look into transferring to tertiary center with neurosurgery/vascular surgery for further management Permissive hypertension for 48 hours NIHSS qshift Neuro Chek q4hr GI ppx: not currently indicated DVT ppx: Lovenox Code status: Full Prognosis: extremely guarded Disposition: Inpatient ICU with telemetry Critical Care Time: 1.5hr Time Spent With Patient Time: Total time spent is greater than 50% in coordination of care (as documented) at patient's floor/unit and/or counseling patient: Total time spent with greater than 50% in coordination of care (as documented) at patient's floor/unit and/or counseling patient:: Greater than 35 minutes QUALITY Stroke Symptom Onset Unknown: No
[2021-04-11 12:51] LABS: Carbon Dioxide 18 mmol/L (22-30); Chloride 104 mmol/L (96-108)
[2021-04-11] MEDS ORDERED: DEXTROSE 50% 50 ML VIAL IV PRN (13:23)
[2021-04-11] MEDS ORDERED: DEXTROSE 31 GM ORAL.SUSP PO PRN (13:23)
[2021-04-11] MEDS ORDERED: INSULIN GLARGINE, HUMAN 1 UNIT/0.01 ML SQ ONE (13:23)
[2021-04-11] MEDS ORDERED: MAGNESIUM SULFATE 2 GM/50 ML BAG IV ONE (14:12)
[2021-04-11] MEDS: INSULIN LISPRO 1 UNIT/0.01 ML UNIT SQ SCH ×2 (16:47→21:51)
[2021-04-11] MEDS: ATORVASTATIN 40 MG TABLET PO SCH (21:50)
[2021-04-11] MEDS: INSULIN GLARGINE, HUMAN 1 UNIT/0.01 ML SQ SCH (21:50)
[2021-04-12] MEDS: 0.9 % SODIUM CHLORIDE 10 ML SYRINGE IV SCH ×3 (05:52→22:00)
[2021-04-12 06:38] LABS: Basophils # (Auto) 0.02 K/mcL (0.00-0.30); Basophils % (Auto) 0.3 % (0.0-2.0); Eosinophils # (Auto) 0.04 K/mcL (0.00-0.70); Eosinophils % (Auto) 0.6 % (0.0-7.0); Hematocrit 41.7 % (34.1-44.9); Hemoglobin 14.6 g/dL (11.2-15.7); Lymphocytes # (Auto) 2.42 K/mcL (1.50-4.80); Lymphocytes % (Auto) 34.1 % (15.5-49.0); Mean Cell Volume 90.5 fL (80.0-100.0); Mean Platelet Volume 10.4 fL (7.4-10.4); Monocytes # (Auto) 0.75 K/mcL (0.10-0.90); Monocytes % (Auto) 10.6 % (1.0-12.0); Neutrophils % (Auto) 54.4 % (38.0-78.0); Platelet Count 198 K/mcL (140-440); RBC 4.61 M/mcL (3.59-5.38); Red Cell Distribution Width 12.4 % (11.5-14.5); WBC 7.1 K/mcL (4.5-11.0)
--- NOTE | 2021-04-12 07:37 | EKG ---
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
[2021-04-12] MEDS: INSULIN LISPRO 1 UNIT/0.01 ML UNIT SQ SCH ×4 (08:08→20:30)
--- NOTE | 2021-04-12 08:24 | Internal Med Progress Note ---
SUBJECTIVE Subjective Patient information: Note initiated : 04/12/21 at 8:19 am Service Date, if different from initiated Date: [] Patient: Cece Dumont a 35 y/o F admitted on 04/10/21 for Increase Weakness and not talking. Chief Complaint: [] Interval history: Ms. Bry Tai is a 35 year old F history of moyamoya with prior stroke 4 years ago, type 2 diabetes mellitus insulin dependent, asthma, presenting with 1 day history of acute onset altered mental status and nonverbal status. History is limited by clinical situations. It is mostly obtained from at the bedside. She was being seen in our ED last week with the diagnosis of asthma exacerbations with acute bronchitis. She was being discharged home with antibiotics as well as prednisone. She has been taking the prednisone. She also was reported to skip some doses of insulin. This morning at 3 AM she was noted by her to have altered mental status and nonverbal. The situation persist later this morning so she was being sent to our ED for further black luations. Now in the ED patient is able to make some noise but she is still largely nonverbal. Vital signs significant for tachycardia. Labs significant for serum glucose elevated at 317, positive beta hydroxybutyrate, serum bicarb of 12, and elevated anion gap of 25, although supporting the diagnosis of diabetic ketoacidosis. She also have a CT of the head without contrast did not show any acute intra cranial pathologies. 04/11: MRI brain w/o: IMPRESSION: 1. 2 cm region of restricted diffusion in the parafalcine left frontal lobe near vertex is compatible with acute nonhemorrhagic infarct. Two 4 mm acute nonhemorrhagic lacunar infarcts are seen more anteriorly in the left frontal lobe. There is a 5 mm acute infarct in genu of the corpus callosum. 2 cm remote infarct in the parafalcine right frontal lobe and a 1.5 cm cortical-based infarct in the mid right frontal lobe are not well-visualized on this limited exam. All infarcts are in the anterior circulation predominantly supplied by the anterior cerebral arteries. Suggest CT carotid and CT cerebral angiogram to evaluate for occlusion or stenosis. Head/neck CTA: IMPRESSION: 1. 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 The occlusion extends into the A1 and M1 origins. The A2 and M2 segments of the anterior and middle cerebral arteries are perfused via patent posterior communicating artery from the posterior cerebral artery. There also likely pial collaterals. A "puff of smoke "appearance in the medial temporal lobes are compatible tiny collaterals. Findings are classic for Moyamoya disease. This is a poorly understood fibrocellular proliferation and intimal thickening of the intracranial internal carotid arteries resulting in vascular stenosis and occlusion. Classically, it involves the distal intracranial ICA and [place] of [place]. 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 They are classically treated neurosurgically with external carotid or superficial temporal artery to middle cerebral artery bypass. However, prior to surgery, please consider consultation with a interventional Stil on insulin drip for the management of DKA, pending next BMP check to see if can switch to SQ insulin. Will look into transferring to a tertiary center with neurosurgery/vascular surgery for further management. 04/12: Fasting glucose 97. CMP pending. I had a talk to Dr. Santiago neurosurgeon [facility]. He recs. continue to monitor for her stroke symptoms with NIH stroke scale. If no clinical signs of additional new stroke, will coordinate to see her over in 6 weeks for neurosurgical procedures. If there is new clinical signs of new additional stroke, will repeat MRI brain stroke protocol, and if there is evidence of new additional stroke, will give him a call back to discuss need to transfer patient emergently for emergent procedure. Patient is otherwise feeling well, denies any pain or discomfort. A&OX2 to person and place only. Constitutional Vitals: Vital Signs Temp Pulse Resp BP Pulse Ox 37.0 C 117 H 17 140/88 98 04/12/21 08:01 04/12/21 08:01 04/12/21 08:01 04/12/21 08:01 04/12/21 08:01 Period Temp Pulse Resp BP Sys/Mcnair Pulse Ox Last 24 Hr 36.4 C-37.3 C 106-129 13-23 109-161/66-105 92-100 Intake and Output 04/11/21 04/12/21 04/12/21 21:59 05:59 13:59 Intake Total 50 300 360 Output Total 290 600 190 Balance -240 -300 170 Weight 112.548 kg Intake & Output: Intake & Output 04/11/21 04/12/21 04/12/21 21:59 05:59 13:59 Intake Total 50 300 360 Output Total 290 600 190 Balance -240 -300 170 Weight 112.548 kg Intake: IV 50 Oral 300 360 Output: Urine Catheter Amount 290 600 190 Other: Urine Appearance Clear Clear Clear Urine Color Tea Colored Pale Bright Yellow General appearance: cooperative, no acute distress and obese Head Head exam: Present atraumatic and normal inspection Eye Eye exam: Present normal appearance ENT ENT exam: Present mucous membranes moist, normal exam and normal external ear exam Neck Neck exam: Present normal inspection Respiratory Respiratory exam: Present normal respiratory exam Cardiovascular Cardiovascular exam: Present tachycardia GI/Abdominal GI/Abdominal exam: Present normal bowel sounds Back Exam Back exam: Present normal inspection Neurological Exam Neurological exam: Present alert and altered; Absent motor sensory deficit or oriented X3 Additional comments: orientation X2 to person and place only motor strength 3/5 bilateral lower extremities Light touch sensation decreased right hand Skin Skin exam: Present intact and warm OBJ DATA Labs CBC & Chem 7: 04/12/21 05:16 04/11/21 11:55 Labs: Abnormal Lab Results 04/11/21 04/11/21 04/11/21 11:55 05:26 05:26 RBC Hgb Hct [place] % (Auto) 12.3 H Carbon Dioxide 18 L 16 L Anion Gap Glucose 180 H Hemoglobin A1c Calcium 8.0 L Phosphorus 1.3 L Magnesium 1.5 L Albumin 2.9 L Globulin Albumin/Globulin Ratio 0.9 L Triglycerides Cholesterol LDL Cholesterol, Calc Non-HDL Cholesterol HDL Cholesterol Beta-Hydroxybutyrate Urine Protein Urine Glucose (UA) Urine Ketones Urine Occult Blood Urine Bilirubin Hyaline Casts Urine Mucus 04/11/21 04/10/21 04/10/21 05:26 19:10 17:57 RBC Hgb Hct [place] % (Auto) Carbon Dioxide 16 L 9 L* Anion Gap 25.0 H Glucose Hemoglobin A1c Calcium Phosphorus Magnesium Albumin Globulin Albumin/Globulin Ratio Triglycerides 342 H Cholesterol 209 H LDL Cholesterol, Calc 118 H Non-HDL Cholesterol 186 H HDL Cholesterol 23 L Beta-Hydroxybutyrate Urine Protein Urine Glucose (UA) Urine Ketones Urine Occult Blood Urine Bilirubin Hyaline Casts Urine Mucus 04/10/21 04/10/21 04/10/21 15:24 14:00 12:23 RBC Hgb Hct [place] % (Auto) Carbon Dioxide Anion Gap Glucose Hemoglobin A1c 11.2 H Calcium Phosphorus Magnesium Albumin Globulin Albumin/Globulin Ratio Triglycerides Cholesterol LDL Cholesterol, Calc Non-HDL Cholesterol HDL Cholesterol Beta-Hydroxybutyrate 7.36 H Urine Protein >=300 mg/dl A Urine Glucose (UA) 500 mg/dl A Urine Ketones >=160 mg/dl A Urine Occult Blood Moderate A Urine Bilirubin Small A Hyaline Casts 6 H Urine Mucus Few A 04/10/21 04/10/21 12:23 12:23 RBC 5.61 H Hgb 17.6 H Hct 52.4 H [place] % (Auto) Carbon Dioxide 12 L Anion Gap 25.0 H Glucose 317 H Hemoglobin A1c Calcium Phosphorus Magnesium Albumin Globulin 4.0 H Albumin/Globulin Ratio Triglycerides Cholesterol LDL Cholesterol, Calc Non-HDL Cholesterol HDL Cholesterol Beta-Hydroxybutyrate Urine Protein Urine Glucose (UA) Urine Ketones Urine Occult Blood Urine Bilirubin Hyaline Casts Urine Mucus Meds: Medications Acetaminophen (Acetaminophen 325 Mg Tablet) 650 mg PO Q4-6HP PRN; Protocol PRN Reason: Per Pain Protocol/Fever > 101 Albuterol/Ipratropium (Ipratropium/Albuterol 3 Ml Ampul.Neb) 3 ml NEB Q4HRT PRN PRN Reason: Wheezing Aspirin (Aspirin 81 Mg Tab.Chew) 81 mg CHEWED DAILY [facility] Last Admin: 04/11/21 09:08 Dose: 81 mg Documented by: Atorvastatin Calcium (Atorvastatin 40 Mg Tablet) 40 mg PO [facility] Last Admin: 04/11/21 21:50 Dose: 40 mg Documented by: Bupropion HCl (Bupropion 150 Mg Tab.Xl.24h) 300 mg PO DAILY [facility] Last Admin: 04/11/21 09:08 Dose: 300 mg Documented by: Clopidogrel Bisulfate (Clopidogrel 75 Mg Tablet) 75 mg PO DAILY [facility] Last Admin: 04/11/21 09:08 Dose: 75 mg Documented by: Dextrose (Dextrose 50% 50 Ml Vial) 0 ml IV UD PRN PRN Reason: Hypoglycemia Diagnostic Test (Pha) (Accu-Chek 1 Each Strip) 1 each FS ACHS [facility] Last Admin: 04/12/21 08:08 Dose: 1 each Documented by: Docusate Sodium (Docusate Sodium 100 Mg Capsule) 100 mg PO BID [facility] Last Admin: 04/11/21 20:00 Dose: Not Given Documented by: Enoxaparin Sodium (Enoxaparin 40 Mg/0.4 Ml Syringe) 40 mg SQ DAILY [facility] Last Admin: 04/11/21 09:08 Dose: 40 mg Documented by: Glucose (Dextrose 31 Gm Oral.Susp) 15 gm PO PRN PRN PRN Reason: Hypoglycemia Hydralazine HCl (Hydralazine 20 Mg/Ml Vial) 10 mg IV Q4-6HP PRN PRN Reason: Hypertension Insulin Glargine (Insulin Glargine, Human 1 Unit/0.01 Ml) 10 unit SQ QAM [facility] Insulin Glargine (Insulin Glargine, Human 1 Unit/0.01 Ml) 55 unit SQ QHS [facility] Last Admin: 04/11/21 21:50 Dose: 55 units Documented by: Insulin Human Lispro (Insulin Lispro 1 Unit/0.01 Ml Unit) 0 unit SQ ACHS [facility]; Protocol Last Admin: 04/12/21 08:08 Dose: Not Given Documented by: Losartan Potassium (Losartan 50 Mg Tablet) 100 mg PO DAILY [facility] Last Admin: 04/11/21 09:08 Dose: 100 mg Documented by: Methocarbamol (Methocarbamol 750 Mg Tablet) 750 mg PO TIDP PRN PRN Reason: Muscle Spasm Montelukast Sodium (Montelukast 10 Mg Tablet) 10 mg PO DAILY [facility] Last Admin: 04/11/21 09:08 Dose: 10 mg Documented by: Ondansetron HCl (Ondansetron 4 Mg/2 Ml Vial) 4 mg IV Q4-6HP PRN; Protocol PRN Reason: Nausea And Vomiting Promethazine HCl (Promethazine 25 Mg/Ml Vial) 25 mg IV Q4-6HP PRN; Protocol PRN Reason: Nausea And Vomiting Senna (Sennosides 1 Tablet) 1 tab PO DAILYP PRN PRN Reason: Constipation Sodium Chloride (0.9 % Sodium Chloride 10 Ml Syringe) 10 ml IV Q8 [facility] Last Admin: 04/12/21 05:52 Dose: 10 ml Documented by: A/P Assessment and plan (1) Diabetic ketoacidosis: Status: Acute (2) Asthma: Status: Acute (3) Moyamoya: Status: Acute (4) Acute ischemic stroke: Status: Acute Narrative A/P Narrative: Assessment and Plans: 1. DKA type II: Inpatient ICU with telemetry -->transfer to PCU Avoid oral hypoglycemics Lantus 10 unit AM; 55 unit HS Correctional scale insulin AC HS Accu Chek AC HS Hypoglycemia protocol rn diabetes educator CC diet 2. h/o asthma: DuoNEB NEB PRN wheezing Singulair 3. Ischemic stroke: Please see MRI brain w/o and CTA head and neck report for full details Physical therapy Occupational therapy Speech therapy Dual antiplatelet therapy Aspirin and Plavix Statin Finished Permissive hypertension for 48 hours, now will start aggressive blood pressure control NIHSS qshift Neuro Chek q4hr I had a talk to Dr. Santiago neurosurgeon [facility]. He recs. continue to monitor for her stroke symptoms with NIH stroke scale. If no clinical signs of additional new stroke, will coordinate to see her over in 6 weeks for neurosurgical procedures. If there is new clinical signs of new additional stroke, will repeat MRI brain stroke protocol, and if there is evidence of new additional stroke, will give him a call back to discuss need to transfer patient emergently for emergent procedure. GI ppx: not currently indicated DVT ppx: Lovenox Code status: Full Prognosis: guarded Disposition: Inpatient ICU with telemetry-->transfer to PCU Critical Care Time: 45min Time Spent With Patient Time: Total time spent is greater than 50% in coordination of care (as documented) at patient's floor/unit and/or counseling patient: Total time spent with greater than 50% in coordination of care (as documented) at patient's floor/unit and/or counseling patient:: Greater than 35 minutes QUALITY Stroke Symptom Onset Unknown: No
[2021-04-12] MEDS ORDERED: METOPROLOL TARTRATE 5 MG/5 ML VIAL IV PRN (08:25)
[2021-04-12 08:44] LABS: ALT/SGPT 8 U/L (<40); AST/SGOT 11 U/L (<32); Albumin 2.8 gm/dL (3.2-5.2); Albumin/Globulin Ratio 0.9 (1.0-2.3); Alkaline Phosphatase 48 U/L (39-117); Bilirubin,Total 0.5 mg/dL (0.1-1.0); Blood Urea Nitrogen 16 mg/dL (6-20); Calcium 8.3 mg/dL (8.6-10.4); Carbon Dioxide 18 mmol/L (22-30); Chloride 104 mmol/L (96-108); Glomerular Filtration Rate 95; Glucose 106 mg/dL (70-105)
[2021-04-12] MEDS: INSULIN GLARGINE, HUMAN 1 UNIT/0.01 ML SQ SCH ×2 (08:45→20:30)
[2021-04-12] MEDS: ENOXAPARIN 40 MG/0.4 ML SYRINGE SQ SCH (08:45)
[2021-04-12] MEDS: DOCUSATE SODIUM 100 MG CAPSULE PO SCH ×2 (08:46→20:30)
[2021-04-12] MEDS: MONTELUKAST 10 MG TABLET PO SCH (08:46)
[2021-04-12] MEDS: METOPROLOL TARTRATE 50 MG TABLET PO SCH ×2 (08:46→20:30)
[2021-04-12] MEDS: CLOPIDOGREL 75 MG TABLET PO SCH (08:46)
[2021-04-12] MEDS: ASPIRIN 81 MG TAB.CHEW CHEWED SCH (08:46)
[2021-04-12] MEDS: buPROPion 150 MG TAB.XL.24H PO SCH (08:46)
[2021-04-12] MEDS: LOSARTAN 50 MG TABLET PO SCH (12:43)
[2021-04-12] MEDS: POTASSIUM CHLORIDE 20 MEQ TABLET PO SCH ×2 (13:14→17:01)
[2021-04-12] MEDS ORDERED: POTASSIUM CHLORIDE 20 MEQ TABLET PO SCH (17:30)
[2021-04-12] MEDS: ATORVASTATIN 40 MG TABLET PO SCH (20:30)
[2021-04-13] MEDS: 0.9 % SODIUM CHLORIDE 10 ML SYRINGE IV SCH ×3 (06:19→21:28)
[2021-04-13 06:55] LABS: Basophils # (Auto) 0.02 K/mcL (0.00-0.30); Basophils % (Auto) 0.3 % (0.0-2.0); Eosinophils # (Auto) 0.11 K/mcL (0.00-0.70); Eosinophils % (Auto) 1.6 % (0.0-7.0); Hematocrit 38.1 % (34.1-44.9); Hemoglobin 12.3 g/dL (11.2-15.7); Lymphocytes # (Auto) 2.11 K/mcL (1.50-4.80); Mean Cell Volume 96.5 fL (80.0-100.0); Mean Corpuscular HGB Conc 32.3 g/dL (31.0-36.0); Mean Platelet Volume 10.2 fL (7.4-10.4); Monocytes # (Auto) 0.72 K/mcL (0.10-0.90); Monocytes % (Auto) 10.2 % (1.0-12.0); Neutrophils % (Auto) 57.9 % (38.0-78.0); Platelet Count 194 K/mcL (140-440); RBC 3.95 M/mcL (3.59-5.38); Red Cell Distribution Width 12.8 % (11.5-14.5)
[2021-04-13 07:18] LABS: ALT/SGPT 6 U/L (<40); AST/SGOT 10 U/L (<32); Albumin 2.5 gm/dL (3.2-5.2); Albumin/Globulin Ratio 0.9 (1.0-2.3); Alkaline Phosphatase 45 U/L (39-117); Bilirubin,Total 0.4 mg/dL (0.1-1.0); Blood Urea Nitrogen 15 mg/dL (6-20); Calcium 8.3 mg/dL (8.6-10.4); Carbon Dioxide 21 mmol/L (22-30); Chloride 110 mmol/L (96-108); Globulin 2.9 gm/dL (2.2-3.7); Glomerular Filtration Rate 117; Glucose 144 mg/dL (70-105); Phosphorous 2.5 mg/dL (2.5-4.5)
[2021-04-13] MEDS: INSULIN LISPRO 1 UNIT/0.01 ML UNIT SQ SCH ×4 (07:32→21:27)
[2021-04-13] MEDS ORDERED: guaiFENesin/CODEINE 10 ML UDC PO PRN (08:23)
--- NOTE | 2021-04-13 08:30 | Internal Med Progress Note ---
SUBJECTIVE Subjective Patient information: Note initiated : 04/13/21 at 8:24 am Service Date, if different from initiated Date: [] Patient: Cece Dumont a 35 y/o F admitted on 04/10/21 for Increase Weakness and not talking. Chief Complaint: [] Interval history: Ms. Bry Tai is a 35 year old F history of moyamoya with prior stroke 4 years ago, type 2 diabetes mellitus insulin dependent, asthma, presenting with 1 day history of acute onset altered mental status and nonverbal status. History is limited by clinical situations. It is mostly obtained from at the bedside. She was being seen in our ED last week with the diagnosis of asthma exacerbations with acute bronchitis. She was being discharged home with antibiotics as well as prednisone. She has been taking the prednisone. She also was reported to skip some doses of insulin. This morning at 3 AM she was noted by her to have altered mental status and nonverbal. The situation persist later this morning so she was being sent to our ED for further black luations. Now in the ED patient is able to make some noise but she is still largely nonverbal. Vital signs significant for tachycardia. Labs significant for serum glucose elevated at 317, positive beta hydroxybutyrate, serum bicarb of 12, and elevated anion gap of 25, although supporting the diagnosis of diabetic ketoacidosis. She also have a CT of the head without contrast did not show any acute intra cranial pathologies. 04/11: MRI brain w/o: IMPRESSION: 1. 2 cm region of restricted diffusion in the parafalcine left frontal lobe near vertex is compatible with acute nonhemorrhagic infarct. Two 4 mm acute nonhemorrhagic lacunar infarcts are seen more anteriorly in the left frontal lobe. There is a 5 mm acute infarct in genu of the corpus callosum. 2 cm remote infarct in the parafalcine right frontal lobe and a 1.5 cm cortical-based infarct in the mid right frontal lobe are not well-visualized on this limited exam. All infarcts are in the anterior circulation predominantly supplied by the anterior cerebral arteries. Suggest CT carotid and CT cerebral angiogram to evaluate for occlusion or stenosis. Head/neck CTA: IMPRESSION: 1. 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 The occlusion extends into the A1 and M1 origins. The A2 and M2 segments of the anterior and middle cerebral arteries are perfused via patent posterior communicating artery from the posterior cerebral artery. There also likely pial collaterals. A "puff of smoke "appearance in the medial temporal lobes are compatible tiny collaterals. Findings are classic for Moyamoya disease. This is a poorly understood fibrocellular proliferation and intimal thickening of the intracranial internal carotid arteries resulting in vascular stenosis and occlusion. Classically, it involves the distal intracranial ICA and [place] of [place]. Epidemiologically, there is a bimodal age distribution at presentation including an community nurse of four years and a middle-aged distribution of 30-40 years as in this case. They are classically treated neurosurgically with external carotid or superficial temporal artery to middle cerebral artery bypass. However, prior to surgery, please consider consultation with a interventional Stil on insulin drip for the management of DKA, pending next BMP check to see if can switch to SQ insulin. Will look into transferring to a tertiary center with neurosurgery/vascular surgery for further management. 04/12: Fasting glucose 97. CMP pending. I had a talk to Dr. Santiago neurosurgeon [facility]. He recs. continue to monitor for her stroke symptoms with NIH stroke scale. If no clinical signs of additional new stroke, will coordinate to see her over in 6 weeks for neurosurgical procedures. If there is new clinical signs of new additional stroke, will repeat MRI brain stroke protocol, and if there is evidence of new additional stroke, will give him a call back to discuss need to transfer patient emergently for emergent procedure. Patient is otherwise feeling well, denies any pain or discomfort. A&OX2 to person and place only. 04/13: Fasting glucose 119. NIH SS pending. Patient is feeling great this morning. Continue secondary prevention for stroke. Continue current insulin regimen for glycemic control. Constitutional Vitals: Vital Signs Temp Pulse Resp BP Pulse Ox 36.9 C 88 16 127/82 96 04/13/21 08:01 04/13/21 08:01 04/13/21 08:01 04/13/21 08:01 04/13/21 08:01 Period Temp Pulse Resp BP Sys/Mcnair Pulse Ox Last 24 Hr 36.2 C-37.3 C 80-133 15-21 106-159/60-101 93-100 Intake and Output 04/12/21 04/13/21 04/13/21 21:59 05:59 13:59 Intake Total 650 Output Total 185 1100 180 Balance 465 -1100 -180 Weight 113.597 kg Intake & Output: Intake & Output 04/12/21 04/13/21 04/13/21 21:59 05:59 13:59 Intake Total 650 Output Total 185 1100 180 Balance 465 -1100 -180 Weight 113.597 kg Intake: Oral 650 Output: Urine Catheter Amount 120 1100 180 Void Amount 65 Other: Meal Dinner Percent of Meal Consumed 50% Feeding Ability Assist with Tray Set Up Urine Appearance Clear Clear Clear Urine Color Bright Yellow Dark Yellow Dark Yellow Stool Size Small Stool Color Brown Stool Consistency Soft # Bowel Movements 1 # of times incontinent of 0 Bowels Head Head exam: Present atraumatic and normal inspection Eye Eye exam: Present normal appearance ENT ENT exam: Present mucous membranes moist, normal exam and normal external ear exam Neck Neck exam: Present normal inspection Respiratory Respiratory exam: Present normal respiratory exam Cardiovascular Cardiovascular exam: Present normal rate and rhythm GI/Abdominal GI/Abdominal exam: Present normal bowel sounds Back Exam Back exam: Present normal inspection Neurological Exam Neurological exam: Present alert, motor sensory deficit and oriented X3 Skin Skin exam: Present intact and warm OBJ DATA Labs CBC & Chem 7: 04/13/21 05:16 04/13/21 05:16 Labs: Abnormal Lab Results 04/13/21 04/12/21 04/11/21 05:16 05:16 11:55 RBC Hgb Hct Rogers % (Auto) Potassium 3.1 L Chloride 110 H Carbon Dioxide 21 L 18 L 18 L Anion Gap Glucose 144 H 106 H Hemoglobin A1c Calcium 8.3 L 8.3 L Phosphorus 2.0 L Magnesium 1.5 L Total Protein 5.4 L 5.8 L Albumin 2.5 L 2.8 L Globulin Albumin/Globulin Ratio 0.9 L 0.9 L Triglycerides Cholesterol LDL Cholesterol, Calc Non-HDL Cholesterol HDL Cholesterol Beta-Hydroxybutyrate Urine Protein Urine Glucose (UA) Urine Ketones Urine Occult Blood Urine Bilirubin Hyaline Casts Urine Mucus 04/11/21 04/11/21 04/11/21 05:26 05:26 05:26 RBC Hgb Hct Rogers % (Auto) 12.3 H Potassium Chloride Carbon Dioxide 16 L 16 L Anion Gap Glucose 180 H Hemoglobin A1c Calcium 8.0 L Phosphorus 1.3 L Magnesium Total Protein Albumin 2.9 L Globulin Albumin/Globulin Ratio 0.9 L Triglycerides Cholesterol LDL Cholesterol, Calc Non-HDL Cholesterol HDL Cholesterol Beta-Hydroxybutyrate Urine Protein Urine Glucose (UA) Urine Ketones Urine Occult Blood Urine Bilirubin Hyaline Casts Urine Mucus 04/10/21 04/10/21 04/10/21 19:10 17:57 15:24 RBC Hgb Hct Rogers % (Auto) Potassium Chloride Carbon Dioxide 9 L* Anion Gap 25.0 H Glucose Hemoglobin A1c 11.2 H Calcium Phosphorus Magnesium Total Protein Albumin Globulin Albumin/Globulin Ratio Triglycerides 342 H Cholesterol 209 H LDL Cholesterol, Calc 118 H Non-HDL Cholesterol 186 H HDL Cholesterol 23 L Beta-Hydroxybutyrate Urine Protein Urine Glucose (UA) Urine Ketones Urine Occult Blood Urine Bilirubin Hyaline Casts Urine Mucus 04/10/21 04/10/21 04/10/21 14:00 12:23 12:23 RBC Hgb Hct Rogers % (Auto) Potassium Chloride Carbon Dioxide 12 L Anion Gap 25.0 H Glucose 317 H Hemoglobin A1c Calcium Phosphorus Magnesium Total Protein Albumin Globulin 4.0 H Albumin/Globulin Ratio Triglycerides Cholesterol LDL Cholesterol, Calc Non-HDL Cholesterol HDL Cholesterol Beta-Hydroxybutyrate 7.36 H Urine Protein >=300 mg/dl A Urine Glucose (UA) 500 mg/dl A Urine Ketones >=160 mg/dl A Urine Occult Blood Moderate A Urine Bilirubin Small A Hyaline Casts 6 H Urine Mucus Few A 04/10/21 12:23 RBC 5.61 H Hgb 17.6 H Hct 52.4 H Rogers % (Auto) Potassium Chloride Carbon Dioxide Anion Gap Glucose Hemoglobin A1c Calcium Phosphorus Magnesium Total Protein Albumin Globulin Albumin/Globulin Ratio Triglycerides Cholesterol LDL Cholesterol, Calc Non-HDL Cholesterol HDL Cholesterol Beta-Hydroxybutyrate Urine Protein Urine Glucose (UA) Urine Ketones Urine Occult Blood Urine Bilirubin Hyaline Casts Urine Mucus Meds: Medications Acetaminophen (Acetaminophen 325 Mg Tablet) 650 mg PO Q4-6HP PRN; Protocol PRN Reason: Per Pain Protocol/Fever > 101 Albuterol/Ipratropium (Ipratropium/Albuterol 3 Ml Ampul.Neb) 3 ml NEB Q4HRT PRN PRN Reason: Wheezing Aspirin (Aspirin 81 Mg Tab.Chew) 81 mg CHEWED DAILY [facility] Last Admin: 04/12/21 08:46 Dose: 81 mg Documented by: Atorvastatin Calcium (Atorvastatin 40 Mg Tablet) 40 mg PO [facility] Last Admin: 04/12/21 20:30 Dose: 40 mg Documented by: Bupropion HCl (Bupropion 150 Mg Tab.Xl.24h) 300 mg PO DAILY [facility] Last Admin: 04/12/21 08:46 Dose: 300 mg Documented by: Clopidogrel Bisulfate (Clopidogrel 75 Mg Tablet) 75 mg PO DAILY [facility] Last Admin: 04/12/21 08:46 Dose: 75 mg Documented by: Dextrose (Dextrose 50% 50 Ml Vial) 0 ml IV UD PRN PRN Reason: Hypoglycemia Diagnostic Test (Pha) (Accu-Chek 1 Each Strip) 1 each FS [facility] Last Admin: 04/13/21 07:32 Dose: 1 each Documented by: Docusate Sodium (Docusate Sodium 100 Mg Capsule) 100 mg PO BID [facility] Last Admin: 04/12/21 20:30 Dose: 100 mg Documented by: Enoxaparin Sodium (Enoxaparin 40 Mg/0.4 Ml Syringe) 40 mg SQ DAILY [facility] Last Admin: 04/12/21 08:45 Dose: 40 mg Documented by: Glucose (Dextrose 31 Gm Oral.Susp) 15 gm PO PRN PRN PRN Reason: Hypoglycemia Guaifenesin/Codeine Phosphate (Guaifenesin/Codeine 10 Ml Udc) 10 ml PO Q4HP PRN PRN Reason: Cough Hydralazine HCl (Hydralazine 20 Mg/Ml Vial) 10 mg IV Q4-6HP PRN PRN Reason: Hypertension Insulin Glargine (Insulin Glargine, Human 1 Unit/0.01 Ml) 10 unit SQ QAM [facility] Last Admin: 04/12/21 08:45 Dose: 10 unit Documented by: Insulin Glargine (Insulin Glargine, Human 1 Unit/0.01 Ml) 55 unit SQ QHS [facility] Last Admin: 04/12/21 20:30 Dose: 55 units Documented by: Insulin Human Lispro (Insulin Lispro 1 Unit/0.01 Ml Unit) 0 unit SQ [facility]; Protocol Last Admin: 04/13/21 07:32 Dose: Not Given Documented by: Methocarbamol (Methocarbamol 750 Mg Tablet) 750 mg PO TIDP PRN PRN Reason: Muscle Spasm Metoprolol Tartrate (Metoprolol Tartrate 50 Mg Tablet) 50 mg PO BID [facility] Last Admin: 04/12/21 20:30 Dose: 50 mg Documented by: Montelukast Sodium (Montelukast 10 Mg Tablet) 10 mg PO DAILY [facility] Last Admin: 04/12/21 08:46 Dose: 10 mg Documented by: Ondansetron HCl (Ondansetron 4 Mg/2 Ml Vial) 4 mg IV Q4-6HP PRN; Protocol PRN Reason: Nausea And Vomiting Potassium Chloride (Potassium Chloride 20 Meq Tablet) 40 meq PO BIDCC [facility] Last Admin: 04/12/21 17:01 Dose: 40 meq Documented by: Promethazine HCl (Promethazine 25 Mg/Ml Vial) 25 mg IV Q4-6HP PRN; Protocol PRN Reason: Nausea And Vomiting Senna (Sennosides 1 Tablet) 1 tab PO DAILYP PRN PRN Reason: Constipation Sodium Chloride (0.9 % Sodium Chloride 10 Ml Syringe) 10 ml IV Q8 [facility] Last Admin: 04/13/21 06:19 Dose: 10 ml Documented by: A/P Assessment and plan (1) Diabetic ketoacidosis: Status: Acute (2) Asthma: Status: Acute (3) Moyamoya: Status: Acute (4) Acute ischemic stroke: Status: Acute Narrative A/P Narrative: Assessment and Plans: 1. DKA type II: Inpatient PCU Avoid oral hypoglycemics Lantus 10 unit AM; 55 unit HS Correctional scale insulin AC HS Accu Chek AC HS Hypoglycemia protocol peer educator CC diet 2. h/o asthma: DuoNEB NEB PRN wheezing Singulair 3. Ischemic stroke: Please see MRI brain w/o and CTA head and neck report for full details Physical therapy Occupational therapy Speech therapy Dual antiplatelet therapy Aspirin and Plavix Statin Finished Permissive hypertension for 48 hours, now will start aggressive blood pressure control NIHSS qshift Neuro Chek q4hr I had a talk to Dr. Santiago neurosurgeon [facility]. He recs. continue to monitor for her stroke symptoms with NIH stroke scale. If no clinical signs of additional new stroke, will coordinate to see her over in 6 weeks for neurosurgical procedures. If there is new clinical signs of new additional stroke, will repeat MRI brain stroke protocol, and if there is evidence of new additional stroke, will give him a call back to discuss need to transfer patient emergently for emergent procedure. GI ppx: not currently indicated DVT ppx: Lovenox Code status: Full Prognosis: guarded Disposition: Inpatient PCU Critical Care Time: 45min Time Spent With Patient Time: Total time spent is greater than 50% in coordination of care (as documented) at patient's floor/unit and/or counseling patient: Total time spent with greater than 50% in coordination of care (as documented) at patient's floor/unit and/or counseling patient:: Greater than 35 minutes QUALITY Stroke Symptom Onset Unknown: No
[2021-04-13] MEDS: POTASSIUM CHLORIDE 20 MEQ TABLET PO SCH ×2 (09:10→17:12)
[2021-04-13] MEDS: ENOXAPARIN 40 MG/0.4 ML SYRINGE SQ SCH (09:10)
[2021-04-13] MEDS: INSULIN GLARGINE, HUMAN 1 UNIT/0.01 ML SQ SCH ×2 (09:10→21:28)
[2021-04-13] MEDS: buPROPion 150 MG TAB.XL.24H PO SCH (09:11)
[2021-04-13] MEDS: MONTELUKAST 10 MG TABLET PO SCH (09:11)
[2021-04-13] MEDS: ASPIRIN 81 MG TAB.CHEW CHEWED SCH (09:11)
[2021-04-13] MEDS: DOCUSATE SODIUM 100 MG CAPSULE PO SCH ×3 (09:11→21:16)
[2021-04-13] MEDS: CLOPIDOGREL 75 MG TABLET PO SCH (09:11)
[2021-04-13] MEDS: METOPROLOL TARTRATE 50 MG TABLET PO SCH ×2 (09:12→21:28)
[2021-04-13] MEDS ORDERED: FLUCONAZOLE 150 MG TABLET PO SCH (10:00)
--- NOTE | 2021-04-13 13:45 | Internal Med Progress Note ---
SUBJECTIVE Subjective Patient information: Note initiated : 04/13/21 at 1:37 pm Service Date, if different from initiated Date: [] Patient: Cece Dumont a 35 y/o F admitted on 04/10/21 for Increase Weakness and not talking. Chief Complaint: [] Interval history: Ms. Bry Tai is a 35 year old F history of moyamoya with prior stroke 4 years ago, type 2 diabetes mellitus insulin dependent, asthma, presenting with 1 day history of acute onset altered mental status and nonverbal status. History is limited by clinical situations. It is mostly obtained from at the bedside. She was being seen in our ED last week with the diagnosis of asthma exacerbations with acute bronchitis. She was being discharged home with antibiotics as well as prednisone. She has been taking the prednisone. She also was reported to skip some doses of insulin. This morning at 3 AM she was noted by her to have altered mental status and nonverbal. The situation persist later this morning so she was being sent to our ED for further black luations. Now in the ED patient is able to make some noise but she is still largely nonverbal. Vital signs significant for tachycardia. Labs significant for serum glucose elevated at 317, positive beta hydroxybutyrate, serum bicarb of 12, and elevated anion gap of 25 supporting the diagnosis of diabetic ketoacidosis. She also have a CT of the head without contrast did not show any acute intra cranial pathologies. 04/11: MRI brain w/o: IMPRESSION: 1. 2 cm region of restricted diffusion in the parafalcine left frontal lobe near vertex is compatible with acute nonhemorrhagic infarct. Two 4 mm acute nonhemorrhagic lacunar infarcts are seen more anteriorly in the left frontal lobe. There is a 5 mm acute infarct in genu of the corpus callosum. 2 cm remote infarct in the parafalcine right frontal lobe and a 1.5 cm cortical-based infarct in the mid right frontal lobe are not well-visualized on this limited exam. All infarcts are in the anterior circulation predominantly supplied by the anterior cerebral arteries. Suggest CT carotid and CT cerebral angiogram to evaluate for occlusion or stenosis. Head/neck CTA: IMPRESSION: 1. 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 The occlusion extends into the A1 and M1 origins. The A2 and M2 segments of the anterior and middle cerebral arteries are perfused via patent posterior communicating artery from the posterior cerebral artery. There also likely pial collaterals. A "puff of smoke "appearance in the medial temporal lobes are compatible tiny collaterals. Findings are classic for Moyamoya disease. This is a poorly understood fibrocellular proliferation and intimal thickening of the intracranial internal carotid arteries resulting in vascular stenosis and occlusion. Classically, it involves the distal intracranial ICA and [place]. Epidemiologically, there is a bimodal age distribution at presentation including an recruiting internship of four years and a middle-aged distribution of 30-40 years as in this case. They are classically treated neurosurgically with external carotid or superficial temporal artery to middle cerebral artery bypass. However, prior to surgery, please consider consultation with a interventional Stil on insulin drip for the management of DKA, pending next BMP check to see if can switch to SQ insulin. Will look into transferring to a tertiary center with neurosurgery/vascular surgery for further management. 04/12: Fasting glucose 97. CMP pending. I had a talk to Dr. Santiago neurosurgeon [facility]. He recs. continue to monitor for her stroke symptoms with NIH stroke scale. If no clinical signs of additional new stroke, will coordinate to see her over in 6 weeks for neurosurgical procedures. If there is new clinical signs of new additional stroke, will repeat MRI brain stroke protocol, and if there is evidence of new additional stroke, will give him a call back to discuss need to transfer patient emergently for emergent procedure. Patient is otherwise feeling well, denies any pain or discomfort. A&OX2 to person and place only. 04/13: Fasting glucose 119. NIH SS pending. Patient is feeling great this morning. Continue secondary prevention for stroke. Continue current insulin regimen for glycemic control. 04/14 No signs of recurrent stroke however the patient is requiring assistance with ADLs, might need TCU for rehab. Decrease Lantus dose for morning glucose of 99. Physical exam Head: Atraumatic, normal inspection. Eyes: normal appearance, no scleral icterus. Neck: full ROM Respiratory: no respiratory distress. Cardiovascular: normal rate and rhythm, S1, S2. GI/Abdominal: soft, nontender, no guarding. Extremities: full range of motion, nontender. Neurological: CN II-XII intact, intact motor, intact sensation. Psychiatric: normal mood. Skin: warm, normal color Constitutional Vitals: Vital Signs Temp Pulse Resp BP Pulse Ox 99 F 86 16 143/88 95 04/13/21 12:01 04/13/21 12:01 04/13/21 08:01 04/13/21 12:01 04/13/21 12:01 Period Temp Pulse Resp BP Sys/Mcnair Pulse Ox Last 24 Hr 97.4 F-99.1 F 80-102 15-20 106-147/60-99 93-99 Intake and Output 04/12/21 04/13/21 04/13/21 21:59 05:59 13:59 Intake Total 650 720 Output Total 185 1100 180 Balance 465 -1100 540 Weight 113.597 kg Intake & Output: Intake & Output 04/12/21 04/13/21 04/13/21 21:59 05:59 13:59 Intake Total 650 720 Output Total 185 1100 180 Balance 465 -1100 540 Weight 113.597 kg Intake: Oral 650 720 Output: Urine Catheter Amount 120 1100 180 Void Amount 65 Other: Meal Dinner Percent of Meal Consumed 50% Feeding Ability Assist with Tray Set Up Urine Appearance Clear Clear Clear Urine Color Bright Yellow Dark Yellow Dark Yellow Uretheral (Sanz) Light [place] Stool Size Small Stool Color Brown Stool Consistency Soft # Bowel Movements 1 # of times incontinent of 0 Bowels OBJ DATA Labs CBC & Chem 7: 04/14/21 05:15 04/13/21 05:16 Labs: Abnormal Lab Results 04/13/21 04/12/21 04/11/21 05:16 05:16 11:55 [place] % (Auto) Potassium 3.1 L Chloride 110 H Carbon Dioxide 21 L 18 L 18 L Anion Gap Glucose 144 H 106 H Hemoglobin A1c Calcium 8.3 L 8.3 L Phosphorus 2.0 L Magnesium 1.5 L Total Protein 5.4 L 5.8 L Albumin 2.5 L 2.8 L Globulin Albumin/Globulin Ratio 0.9 L 0.9 L Triglycerides Cholesterol LDL Cholesterol, Calc Non-HDL Cholesterol HDL Cholesterol Beta-Hydroxybutyrate Urine Protein Urine Glucose (UA) Urine Ketones Urine Occult Blood Urine Bilirubin Hyaline Casts Urine Mucus 04/11/21 04/11/21 04/11/21 05:26 05:26 05:26 [place] % (Auto) 12.3 H Potassium Chloride Carbon Dioxide 16 L 16 L Anion Gap Glucose 180 H Hemoglobin A1c Calcium 8.0 L Phosphorus 1.3 L Magnesium Total Protein Albumin 2.9 L Globulin Albumin/Globulin Ratio 0.9 L Triglycerides Cholesterol LDL Cholesterol, Calc Non-HDL Cholesterol HDL Cholesterol Beta-Hydroxybutyrate Urine Protein Urine Glucose (UA) Urine Ketones Urine Occult Blood Urine Bilirubin Hyaline Casts Urine Mucus 04/10/21 04/10/21 04/10/21 19:10 17:57 15:24 [place] % (Auto) Potassium Chloride Carbon Dioxide 9 L* Anion Gap 25.0 H Glucose Hemoglobin A1c 11.2 H Calcium Phosphorus Magnesium Total Protein Albumin Globulin Albumin/Globulin Ratio Triglycerides 342 H Cholesterol 209 H LDL Cholesterol, Calc 118 H Non-HDL Cholesterol 186 H HDL Cholesterol 23 L Beta-Hydroxybutyrate Urine Protein Urine Glucose (UA) Urine Ketones Urine Occult Blood Urine Bilirubin Hyaline Casts Urine Mucus 04/10/21 04/10/21 04/10/21 14:00 12:23 12:23 [place] % (Auto) Potassium Chloride Carbon Dioxide 12 L Anion Gap 25.0 H Glucose 317 H Hemoglobin A1c Calcium Phosphorus Magnesium Total Protein Albumin Globulin 4.0 H Albumin/Globulin Ratio Triglycerides Cholesterol LDL Cholesterol, Calc Non-HDL Cholesterol HDL Cholesterol Beta-Hydroxybutyrate 7.36 H Urine Protein >=300 mg/dl A Urine Glucose (UA) 500 mg/dl A Urine Ketones >=160 mg/dl A Urine Occult Blood Moderate A Urine Bilirubin Small A Hyaline Casts 6 H Urine Mucus Few A Meds: Medications Acetaminophen (Acetaminophen 325 Mg Tablet) 650 mg PO Q4-6HP PRN; Protocol PRN Reason: Per Pain Protocol/Fever > 101 Albuterol/Ipratropium (Ipratropium/Albuterol 3 Ml Ampul.Neb) 3 ml NEB Q4HRT PRN PRN Reason: Wheezing Aspirin (Aspirin 81 Mg Tab.Chew) 81 mg CHEWED DAILY [facility] Last Admin: 04/13/21 09:11 Dose: 81 mg Documented by: Atorvastatin Calcium (Atorvastatin 40 Mg Tablet) 40 mg PO [facility] Last Admin: 04/12/21 20:30 Dose: 40 mg Documented by: Bupropion HCl (Bupropion 150 Mg Tab.Xl.24h) 300 mg PO DAILY [facility] Last Admin: 04/13/21 09:11 Dose: 300 mg Documented by: Clopidogrel Bisulfate (Clopidogrel 75 Mg Tablet) 75 mg PO DAILY [facility] Last Admin: 04/13/21 09:11 Dose: 75 mg Documented by: Dextrose (Dextrose 50% 50 Ml Vial) 0 ml IV UD PRN PRN Reason: Hypoglycemia Diagnostic Test (Pha) (Accu-Chek 1 Each Strip) 1 each FS [facility] Last Admin: 04/13/21 11:32 Dose: 1 each Documented by: Docusate Sodium (Docusate Sodium 100 Mg Capsule) 100 mg PO BID [facility] Last Admin: 04/13/21 09:27 Dose: Not Given Documented by: Enoxaparin Sodium (Enoxaparin 40 Mg/0.4 Ml Syringe) 40 mg SQ DAILY [facility] Last Admin: 04/13/21 09:10 Dose: 40 mg Documented by: Glucose (Dextrose 31 Gm Oral.Susp) 15 gm PO PRN PRN PRN Reason: Hypoglycemia Guaifenesin/Codeine Phosphate (Guaifenesin/Codeine 10 Ml Udc) 10 ml PO Q4HP PRN PRN Reason: Cough Last Admin: 04/13/21 10:05 Dose: 10 ml Documented by: Hydralazine HCl (Hydralazine 20 Mg/Ml Vial) 10 mg IV Q4-6HP PRN PRN Reason: Hypertension Insulin Glargine (Insulin Glargine, Human 1 Unit/0.01 Ml) 10 unit SQ QAM [facility] Last Admin: 04/13/21 09:10 Dose: 10 unit Documented by: Insulin Glargine (Insulin Glargine, Human 1 Unit/0.01 Ml) 55 unit SQ QHS [facility] Last Admin: 04/12/21 20:30 Dose: 55 units Documented by: Insulin Human Lispro (Insulin Lispro 1 Unit/0.01 Ml Unit) 0 unit SQ [facility]; Protocol Last Admin: 04/13/21 11:32 Dose: 8 units Documented by: Methocarbamol (Methocarbamol 750 Mg Tablet) 750 mg PO TIDP PRN PRN Reason: Muscle Spasm Metoprolol Tartrate (Metoprolol Tartrate 50 Mg Tablet) 50 mg PO BID [facility] Last Admin: 04/13/21 09:12 Dose: 50 mg Documented by: Montelukast Sodium (Montelukast 10 Mg Tablet) 10 mg PO DAILY [facility] Last Admin: 04/13/21 09:11 Dose: 10 mg Documented by: Ondansetron HCl (Ondansetron 4 Mg/2 Ml Vial) 4 mg IV Q4-6HP PRN; Protocol PRN Reason: Nausea And Vomiting Potassium Chloride (Potassium Chloride 20 Meq Tablet) 40 meq PO BIDCC [facility] Last Admin: 04/13/21 09:10 Dose: 40 meq Documented by: Promethazine HCl (Promethazine 25 Mg/Ml Vial) 25 mg IV Q4-6HP PRN; Protocol PRN Reason: Nausea And Vomiting Senna (Sennosides 1 Tablet) 1 tab PO DAILYP PRN PRN Reason: Constipation Sodium Chloride (0.9 % Sodium Chloride 10 Ml Syringe) 10 ml IV Q8 [facility] Last Admin: 04/13/21 06:19 Dose: 10 ml Documented by: A/P Narrative A/P Narrative: Assessment: 35-year-old female with a history of insulin-dependent diabetes mellitus, asthma, moyamoya disease complicated by prior stroke about 4 years ago admitted for acute ischemic strokes in the left frontal lobe, right frontal lobe, genu of the corpus callosum all of which are in the vascular distribution supplied by the anterior cerebral arteries. The patient also had diabetic ketoacidosis upon admission which has resolved. #Multiple ischemic strokes in the anterior cerebral artery distribution #Resolved diabetic ketoacidosis #Moyamoya disease complicated by recurrent stroke #Asthma #Obesity BMI 48 Plan -Aspirin, Plavix, atorvastatin. -Monitor with frequent neuro checks/NIHSS. -If no new clinical signs of new stroke, follow-up at in 6 weeks for neurosurgery evaluation. -If the patient does develop a new stroke, repeat stroke protocol including MRI brain and consider emergent transfer to . -Lantus and correctional insulin SSI-med. -PT and OT. -phototypesetting equipment monitor. -Diabetic diet. -DVT PPx: Lovenox -CODE STATUS: Full -Disposition: TBD Time Spent With Patient Time: Total time spent is greater than 50% in coordination of care (as documented) at patient's floor/unit and/or counseling patient: QUALITY Stroke Symptom Onset Unknown: No
[2021-04-13] MEDS: IPRATROPIUM/ALBUTEROL 3 ML AMPUL.NEB NEB PRN (15:42)
[2021-04-13] MEDS: ATORVASTATIN 40 MG TABLET PO SCH (21:26)
[2021-04-14] MEDS: 0.9 % SODIUM CHLORIDE 10 ML SYRINGE IV SCH ×3 (05:48→22:22)
[2021-04-14 07:00] LABS: Basophils # (Auto) 0.03 K/mcL (0.00-0.30); Basophils % (Auto) 0.4 % (0.0-2.0); Eosinophils # (Auto) 0.16 K/mcL (0.00-0.70); Eosinophils % (Auto) 2.4 % (0.0-7.0); Hematocrit 40.5 % (34.1-44.9); Hemoglobin 13.2 g/dL (11.2-15.7); Lymphocytes % (Auto) 35.7 % (15.5-49.0); Mean Cell Volume 97.8 fL (80.0-100.0); Mean Corpuscular HGB Conc 32.6 g/dL (31.0-36.0); Monocytes # (Auto) 0.72 K/mcL (0.10-0.90); Monocytes % (Auto) 10.7 % (1.0-12.0); Neutrophils % (Auto) 50.8 % (38.0-78.0); Platelet Count 216 K/mcL (140-440); RBC 4.14 M/mcL (3.59-5.38); WBC 6.7 K/mcL (4.5-11.0)
[2021-04-14 07:31] LABS: Phosphorous 2.8 mg/dL (2.5-4.5)
[2021-04-14] MEDS: IPRATROPIUM/ALBUTEROL 3 ML AMPUL.NEB NEB PRN ×2 (07:52→14:55)
[2021-04-14] MEDS: INSULIN LISPRO 1 UNIT/0.01 ML UNIT SQ SCH ×4 (07:53→22:21)
[2021-04-14] MEDS: ENOXAPARIN 40 MG/0.4 ML SYRINGE SQ SCH (08:46)
[2021-04-14] MEDS: INSULIN GLARGINE, HUMAN 1 UNIT/0.01 ML SQ SCH (08:46)
[2021-04-14] MEDS: CLOPIDOGREL 75 MG TABLET PO SCH (08:47)
[2021-04-14] MEDS: buPROPion 150 MG TAB.XL.24H PO SCH (08:47)
[2021-04-14] MEDS: DOCUSATE SODIUM 100 MG CAPSULE PO SCH ×2 (08:47→22:21)
[2021-04-14] MEDS: POTASSIUM CHLORIDE 20 MEQ TABLET PO SCH ×2 (08:47→17:35)
[2021-04-14] MEDS: METOPROLOL TARTRATE 50 MG TABLET PO SCH ×2 (08:47→22:21)
[2021-04-14] MEDS: MONTELUKAST 10 MG TABLET PO SCH (08:47)
[2021-04-14] MEDS: ASPIRIN 81 MG TAB.CHEW CHEWED SCH (08:47)
[2021-04-14] MEDS ORDERED: INSULIN GLARGINE, HUMAN 1 UNIT/0.01 ML SQ SCH (21:00)
[2021-04-14] MEDS: ATORVASTATIN 40 MG TABLET PO SCH (22:21)
[2021-04-15] MEDS: 0.9 % SODIUM CHLORIDE 10 ML SYRINGE IV SCH (05:43)
[2021-04-15 06:39] LABS: Basophils # (Auto) 0.03 K/mcL (0.00-0.30); Basophils % (Auto) 0.5 % (0.0-2.0); Eosinophils % (Auto) 1.5 % (0.0-7.0); Hemoglobin 13.4 g/dL (11.2-15.7); Lymphocytes # (Auto) 2.21 K/mcL (1.50-4.80); Lymphocytes % (Auto) 33.8 % (15.5-49.0); Mean Cell Volume 95.1 fL (80.0-100.0); Mean Corpuscular HGB Conc 32.7 g/dL (31.0-36.0); Mean Platelet Volume 10.2 fL (7.4-10.4); Monocytes # (Auto) 0.73 K/mcL (0.10-0.90); Monocytes % (Auto) 11.2 % (1.0-12.0); Platelet Count 244 K/mcL (140-440); RBC 4.31 M/mcL (3.59-5.38); Red Cell Distribution Width 12.7 % (11.5-14.5); WBC 6.5 K/mcL (4.5-11.0)
[2021-04-15 07:10] LABS: Phosphorous 3.3 mg/dL (2.5-4.5)
[2021-04-15] MEDS ORDERED: INSULIN LISPRO 1 UNIT/0.01 ML UNIT SQ SCH (07:50)
[2021-04-15] MEDS: INSULIN LISPRO 1 UNIT/0.01 ML UNIT SQ SCH (07:52)
[2021-04-15] MEDS: POTASSIUM CHLORIDE 20 MEQ TABLET PO SCH (07:53)
[2021-04-15] MEDS ORDERED: BISOPROLOL 5 MG TABLET PO SCH (09:00)
[2021-04-15] MEDS: MONTELUKAST 10 MG TABLET PO SCH (09:00)
[2021-04-15] MEDS: ASPIRIN 81 MG TAB.CHEW CHEWED SCH (09:01)
[2021-04-15] MEDS: CLOPIDOGREL 75 MG TABLET PO SCH (09:01)
[2021-04-15] MEDS: buPROPion 150 MG TAB.XL.24H PO SCH (09:01)
[2021-04-15] MEDS: DOCUSATE SODIUM 100 MG CAPSULE PO SCH (09:02)
[2021-04-15] MEDS: ENOXAPARIN 40 MG/0.4 ML SYRINGE SQ SCH (09:02)
--- NOTE | 2021-04-15 12:10 | Discharge Summary ---
Discharge Provider Provider Patient information: Note initiated : 04/15/21 at 12:03 pm Service Date, if different from initiated Date: [] Patient: Cece Dumont a 35 y/o F admitted on 04/10/21 for Increase Weakness and not talking. Chief Complaint: [] Date of admission: 04/10/21 15:55 Discharge date: 04/15/21 Primary care physician: Julianne Leon Consults: 04/10/21 Consult to Physician [CONS] Stat Comment: Consulting Provider: Ellis Flores Reason For Exam: Physician to Consult Discharge Meds Discharge Medications Home Medications albuterol sulfate 90 mcg/actuation aerosol inhaler 2 puff INHALATION Q4H PRN #6.7 g 12/20/20 [Rx Confirmed 04/10/21 Last Taken Unknown] bisoprolol fumarate 10 mg tablet 10 mg PO QDAY 04/10/21 [History Confirmed 04/10/21 Last Taken Unknown] bupropion HCl 300 mg 24 hr tablet, extended release 1 tab PO QDAY 04/10/21 [History Confirmed 04/10/21 Last Taken Unknown] hydrochlorothiazide 25 mg tablet 1 tab PO QDAY 04/10/21 [History Confirmed 04/10/21 Last Taken Unknown] insulin glargine 100 unit/mL subcutaneous solution (Lantus U-100 Insulin) 10 unit SUBCUT QAM 04/10/21 [History Confirmed 04/10/21 Last Taken Unknown] insulin glargine 100 unit/mL subcutaneous solution (Lantus U-100 Insulin) 55 unit SUBCUT QHS 04/10/21 [History Confirmed 04/10/21 Last Taken Unknown] aspirin 81 mg tablet,delayed release 81 mg PO QDAY #60 tab 04/15/21 [Rx Last Taken Unknown] atorvastatin 40 mg tablet 40 mg PO HS #60 tab 04/15/21 [Rx Last Taken Unknown] glipizide 5 mg tablet, extended release 24 hr 5 mg PO QDAY #30 tab 04/15/21 [Rx Last Taken Unknown] methocarbamol 750 mg tablet 750 mg PO TIDP PRN #60 tab 04/15/21 [Rx Last Taken Unknown] montelukast 10 mg tablet 10 mg PO DAILY #30 tab 04/15/21 [Rx Last Taken Unknown] COURSE Hospital Course Hospital course: Ms. Bry Tai is a 35 year old F history of moyamoya with prior stroke 4 years ago, type 2 diabetes mellitus insulin dependent, asthma, presenting with 1 day history of acute onset altered mental status and nonverbal status. History is limited by clinical situations. It is mostly obtained from at the bedside. She was being seen in our ED last week with the diagnosis of asthma exacerbations with acute bronchitis. She was being discharged home with antibiotics as well as prednisone. She has been taking the prednisone. She also was reported to skip some doses of insulin. This morning at 3 AM she was noted by her to have altered mental status and nonverbal. The situation persist later this morning so she was being sent to our ED for further evaluations. Now in the ED patient is able to make some noise but she is still largely nonverbal. Vital signs significant for tachycardia. Labs significant for serum glucose elevated at 317, positive beta hydroxybutyrate, serum bicarb of 12, and elevated anion gap of 25 supporting the diagnosis of diabetic ketoacidosis. She also have a CT of the head without contrast did not show any acute intra cranial pathologies. 04/11: MRI brain w/o: IMPRESSION: 1. 2 cm region of restricted diffusion in the parafalcine left frontal lobe near vertex is compatible with acute nonhemorrhagic infarct. Two 4 mm acute nonhemorrhagic lacunar infarcts are seen more anteriorly in the left frontal lobe. There is a 5 mm acute infarct in genu of the corpus callosum. 2 cm remote infarct in the parafalcine right frontal lobe and a 1.5 cm cortical-based infarct in the mid right frontal lobe are not well-visualized on this limited exam. All infarcts are in the anterior circulation predominantly supplied by the anterior cerebral arteries. Suggest CT carotid and CT cerebral angiogram to evaluate for occlusion or stenosis. Head/neck CTA: IMPRESSION: 1. 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 The occlusion extends into the A1 and M1 origins. The A2 and M2 segments of the anterior and middle cerebral arteries are perfused via patent posterior communicating artery from the posterior cerebral artery. There also likely pial collaterals. A "puff of smoke "appearance in the medial temporal lobes are compatible tiny collaterals. Findings are classic for Moyamoya disease. This is a poorly understood fibrocellular proliferation and intimal thickening of the intracranial internal carotid arteries resulting in vascular stenosis and occlusion. Classically, it involves the distal intracranial ICA and [place]. 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 They are classically treated neurosurgically with external carotid or superficial temporal artery to middle cerebral artery bypass. However, prior to surgery, please consider consultation with a interventional Stil on insulin drip for the management of DKA, pending next BMP check to see if can switch to SQ insulin. Will look into transferring to a tertiary center with neurosurgery/vascular surgery for further management. 04/12: Fasting glucose 97. CMP pending. I had a talk to Dr. Santiago neurosurgeon [facility]. He recs. continue to monitor for her stroke symptoms with NIH stroke scale. If no clinical signs of additional new stroke, will coordinate to see her over in 6 weeks for neurosurgical procedures. If there is new clinical signs of new additional stroke, will repeat MRI brain stroke protocol, and if there is evidence of new additional stroke, will give him a call back to discuss need to transfer patient emergently for emergent procedure. Patient is otherwise feeling well, denies any pain or discomfort. A&OX2 to person and place only. 04/13: Fasting glucose 119. NIH SS pending. Patient is feeling great this morning. Continue secondary prevention for stroke. Continue current insulin regimen for glycemic control. 04/14 No signs of recurrent stroke however the patient is requiring assistance with ADLs, might need TCU for rehab. 04/15 Doing well, mostly independent with ADLs. The patient and her feel comfortable going home with outpatient PT and OT. Discharged to home with . Added Glipizide ER 5 mg daily, the patient has not tolerated Metformin in the past due to GI side effects and Bydureon was too expensive therefore selected a sulfonylurea due to lower cost to the patient. New medications also include aspirin and atorvastatin. The patient prefers outpatient PT and OT, she has an appointment at the [facility] for further surgical intervention for Moyamoya vasculopathy and recurrent ischemic strokes. Physical exam Head: Atraumatic, normal inspection. Eyes: normal appearance, no scleral icterus. Neck: full ROM Respiratory: no respiratory distress. Cardiovascular: normal rate and rhythm, S1, S2. GI/Abdominal: soft, nontender, no guarding. Extremities: full range of motion, nontender. Neurological: CN II-XII intact, intact motor, intact sensation. Psychiatric: normal mood. Skin: warm, normal color Discharge diagnosis: Acute ischemic stroke Secondary discharge diagnosis: Moyamoya disease Diabetes mellitus Reason for admission: Acute ischemic stroke Time Spent with Patient Time attestation: Total time spent providing and/or coordinating discharge services: EXAM Constitutional Vitals: Temp Pulse Resp BP Pulse Ox 97.3 F 85 16 133/113 98 04/15/21 08:04 04/15/21 10:39 04/15/21 08:00 04/15/21 10:24 04/15/21 10:39 Discharge Data Data Completed and Pending Labs on day of discharge: Labs from last 24 hours 04/15/21 04/15/21 05:12 05:12 WBC 6.5 RBC 4.31 Hgb 13.4 Hct 41.0 MCV 95.1 MCH 31.1 MCHC 32.7 RDW 12.7 Plt Count 244 MPV 10.2 Neut % (Auto) 53.0 Lymph % (Auto) 33.8 [place] % (Auto) 11.2 Eos % (Auto) 1.5 Baso % (Auto) 0.5 Lymph # (Auto) 2.21 [place] # (Auto) 0.73 Eos # (Auto) 0.10 Baso # (Auto) 0.03 Absolute Neutrophils 3.46 Phosphorus 3.3 Preliminary micro results at discharge 04/10/21 13:34 Blood Culture - Preliminary Blood 04/10/21 12:56 Blood Culture - Preliminary Blood Discharge Plan Patient/Caregiver Discharge Instructions Activity: increase activity as tolerated Diet: Consistent Carbohydrate Instructions: Diabetic Ketoacidosis (GEN), Ischemic Stroke (GEN) Activity Restrictions/Additional Instructions: Outpatient Physical Therapy has been scheduled though [facility] to begin April 18 @ 9:15 am, please check in at 9:00 am for paperwork. [address] [place] [address]. . Prescriptions: New methocarbamol 750 mg Tablet 750 mg PO TIDP PRN (Reason: Muscle Spasm) Qty: 60 3RF montelukast 10 mg Tablet 10 mg PO DAILY Qty: 30 4RF glipizide 5 mg tablet extended release 24 hr 5 mg PO QDAY Qty: 30 6RF atorvastatin 40 mg Tablet 40 mg PO HS Qty: 60 4RF aspirin 81 mg tablet,delayed release (DR/EC) 81 mg PO QDAY Qty: 60 4RF Continued albuterol sulfate 90 mcg/actuation HFA aerosol inhaler 2 puff inhalation Q4H PRN (Reason: shortness of breath or wheezing) Qty: 6.7 0RF Lantus U-100 Insulin 100 unit/mL solution 10 unit subcut QAM 0RF hydrochlorothiazide 25 mg tablet 1 tab PO QDAY 0RF bupropion HCl 300 mg tablet extended release 24 hr 1 tab PO QDAY 0RF Lantus U-100 Insulin 100 unit/mL solution 55 unit subcut QHS 0RF bisoprolol fumarate 10 mg Tablet 10 mg PO QDAY 0RF Other Ambulatory Orders: Lancets (Routine) Location: None Selected Ordered By: Anand Cortez OT Discharge Order (Routine) Location: None Selected Ordered By: Anand Cortez Physical Therapy at Discharge - General (Routine) Location: None Selected Ordered By: Anand Cortez Follow Up Plan Follow up with: Julianne Leon ARNP [Primary Care Provider] - 04/23/21 9:45 am (Please arrive 15 minutes early for paperwork.) Patient Disposition: Home, Self-Care Prognosis: Fair Overall status at discharge: patient is progressing back to baseline Discharge Orders: Discharge Order (Routine); Ordered 04/15/21 Ordered By: Anand Cortez
== END 2021-04-15 13:42 | disposition home or self-care (01) | DRG 64 ==
LOC: ED 11:56 → ICU 15:55
PROVIDERS: ADMIT Internal Medicine; ATTEND Internal Medicine